=== PATIENT | female | born 1970 | race American Indian/Alaskan Native ===

== ENCOUNTER 2018-06-03 20:51 | Inpatient (IN) | payer MEDICAID ==
[2018-06-03] MEDS ORDERED: Sodium Chloride 0.9% 1,000 ML IV ONE (21:46)
[2018-06-03 22:04] LABS: SQUAMOUS EPITHIAL 12 /hpf (0-5); URINE BACTERIA RARE (<OCC); URINE BILIRUBIN NEGATIVE (NEGATIVE); URINE BLOOD NEGATIVE (NEGATIVE); URINE CLARITY Hazy (Clear); URINE COLOR Amber (YELLOW); URINE GLUCOSE (UA) NORMAL (Normal); URINE LEUKOCYTE ESTERASE NEG Leu/uL (Negative); URINE PROTEIN 2+ mg/dL (NEGATIVE)
--- NOTE | 2018-06-03 22:14 | C.PDOC ---
History Of Present Illness 48 year old female, whose PMHx includes HIV, Bronchitis, HTN, and "small [place]," presents to the ED for evaluation of fever associated with cough and body aches for the past 3 days. Patient also reports urinary frequency and states she had one episode of vomiting today. Patient also notes high viral load; patient states she is supposed to be monitored monthly, but has not followed up in three months. Patient denies chest pain and shortness of breath. HPI: Influenza Time Seen by Provider: 06/03/18 21:29 Chief Complaint: Flu-like Symptoms Past Medical History Vital Signs: Last Vital Signs Temp 102.6 F H 06/03/18 21:11 Pulse 120 H 06/03/18 21:11 Resp 18 06/03/18 21:11 BP 120/80 06/03/18 21:11 Pulse Ox 96 06/03/18 21:11 - Medical History PMH: Asthma, HIV - Social History Hx Alcohol Use: Yes Hx Substance Use: No - ECG O2 Sat by Pulse Oximetry: 96 Disposition - Disposition
--- NOTE | 2018-06-03 22:18 | C.PDOC ---
History Of Present Illness 48 year old female, whose PMHx includes HIV, Bronchitis, HTN, and "small [place]," presents to the ED for evaluation of fever associated with cough and body aches for the past 3 days. Patient also reports urinary frequency and vomiting. Patient also notes she has a high viral load; she is supposed to f/u with her PMD monthly, but has not followed up in three months. Patient denies chest pain and shortness of breath. Time Seen by Provider: 06/03/18 21:29 Chief Complaint (Nursing): Flu-like Symptoms History Per: Patient History/Exam Limitations: no limitations Onset/Duration Of Symptoms: Days (3) Current Symptoms Are (Timing): Still Present Location Of Pain: Diffuse Myalgias Associated Symptoms: Fever, Cough Additional History Per: Patient Past Medical History Reviewed: Historical Data, Nursing Documentation, Vital Signs Vital Signs: Last Vital Signs Temp 98.1 F 06/04/18 04:03 Pulse 84 06/04/18 04:03 Resp 20 06/04/18 04:03 BP 98/65 L 06/04/18 04:03 Pulse Ox 99 06/04/18 04:03 - Medical History PMH: Asthma, HIV Surgical History: No Surg Hx Family History: States: Unknown Family Hx - Social History Hx Alcohol Use: Yes Hx Substance Use: No Review Of Systems Constitutional: Positive for: Fever Cardiovascular: Negative for: Chest Pain Respiratory: Positive for: Cough. Negative for: Shortness of Breath Gastrointestinal: Positive for: Vomiting Genitourinary: Positive for: Frequency Musculoskeletal: Positive for: Other (generalized body aches ) Physical Exam - Physical Exam Appears: Non-toxic, No Acute Distress Skin: Normal Color, Warm, Dry Head: Atraumatic, Normacephalic Eye(s): bilateral: Normal Inspection, EOMI Ear(s): Bilateral: Normal Nose: Normal Oral Mucosa: Moist Tongue: Other (white plaques noted ) Throat: Normal, No Erythema, No Exudate Neck: Normal ROM, Supple Chest: Symmetrical, No Deformity, No Tenderness Cardiovascular: Rhythm Regular, Other (tachycardia ) Respiratory: Normal Breath Sounds, No Rales, No Rhonchi, No Wheezing Gastrointestinal/Abdominal: Soft, No Tenderness Extremity: Normal ROM, Capillary Refill (less than 2 seconds ) Neurological/Psych: Oriented x3, Normal Speech, Normal Cognition ED Course And Treatment - Laboratory Results Result Diagrams: 06/03/18 22:06 06/03/18 22:06 O2 Sat by Pulse Oximetry: 96 (on RA) Pulse Ox Interpretation: Normal Progress Note: Bloodwork, urinalysis, Influenza A/B swab, CXR ordered and reviewed. Tylenol PO and IV fluids given. Case discussed with Dr Cortes, agreed upon plan and admission. Case discussed with Dr Neptali Cardenas, agreed upon plan and admission. Disposition - Disposition Disposition: HOSPITALIZED Disposition Time: 11:00 Condition: STABLE - Clinical Impression Clinical Impression: Hyperpyrexia, Immunocompromised, Vomiting - PA / [employer]RETTED [employer]UMENT [employer] HAND / Resident Statement MD/DO has reviewed & agrees with the documentation as recorded. - Scribe Statement The provider has reviewed the documentation as recorded by the Scribe All medical record entries made by the Scribe were at my direction and personally dictated by me. I have reviewed the chart and agree that the record accurately reflects my personal performance of the history, physical exam, medical decision making, and the department course for this patient. I have also personally directed, reviewed, and agree with the discharge instructions and disposition.
[2018-06-03 22:21] LABS: BASO # 0.1 K/uL (0.0-0.2); BASO % 0.6 % (0.0-2.0); EOS % 0.4 % (0.0-4.0); HEMOGLOBIN 12.1 g/dL (11.0-16.0); LYMPH # 2.5 K/uL (1.0-4.3); LYMPH % 30.2 % (20.0-40.0); MEAN CORPUSCULAR HEMOGLOBIN 29.8 pg (27.0-31.0); MEAN CORPUSCULAR HGB CONC 33.9 g/dL (33.0-37.0); MEAN PLATELET VOLUME 8.6 fL (7.2-11.7); MONO # 0.6 K/uL (0.0-0.8); MONO % 7.8 % (0.0-10.0); NRBC % 0.2 % (0.0-2.0); RBC 4.06 Mil/uL (3.80-5.20); RED CELL DISTRIBUTION WIDTH 13.5 % (11.5-14.5); WHITE BLOOD COUNT 8.1 K/uL (4.8-10.8)
[2018-06-03 22:24] LABS: ALB/GLOB RATIO 0.9 (1.0-2.1); ALBUMIN 4.2 g/dL (3.5-5.0); ALT/SGPT 23 U/L (9-52); AST/SGOT 39 U/L (14-36); BLOOD UREA NITROGEN 20 mg/dL (7-17); CALCIUM 9.2 mg/dl (8.6-10.4); GFR AFRICAN-AMERICAN > 60; GFR NON-AFRICAN AMERICAN 53
[2018-06-03] MEDS ORDERED: Piperacillin/Tazobact 3.375 gm 100 ML IV STA (23:11)
[2018-06-03] MEDS ORDERED: Piperacillin/Tazobact 3.375 gm 100 ML IVPB ONE (23:15)
[2018-06-04] MEDS ORDERED: Vancomycin 1 gm/NS 200 ml 1 GM/200 ML BAG IVPB SCH (01:30)
[2018-06-04] MEDS ORDERED: guaiFENesin DM 200 mg-20 mg/10 ml UD PO ONE (04:13)
--- NOTE | 2018-06-04 07:20 | RAD ---
Date of service: 06/03/2018 HISTORY: SOB COMPARISON: No prior. TECHNIQUE: Chest PA and lateral FINDINGS: LUNGS: There is a rounded patchy density seen the left apex which could reflect an infiltrate although mass is not excluded. Follow-up chest CT is advised for added characterization. Remaining bilateral lung harley are otherwise clear. PLEURA: No significant pleural effusion identified. No pneumothorax apparent. CARDIOVASCULAR: Normal. OSSEOUS STRUCTURES: No significant abnormalities. VISUALIZED UPPER ABDOMEN: Normal. OTHER FINDINGS: None. IMPRESSION: Findings suspicious for small infiltrate or mass left apex for which follow-up chest is advised for added characterization. No additional pertinent findings bilaterally. PA review added.
[2018-06-04] MEDS ORDERED: cefTRIAXone IV 1 gm in Dextros 1 GM in Dextrose 5% In Water 50 ML IVPB SCH (10:00)
[2018-06-04] MEDS: Enoxaparin 40 mg Syringe SC SCH (10:11)
[2018-06-04] MEDS: Azithromycin 500 MG in Sodium Chloride 0.9% 250 ML IVPB SCH (10:12)
[2018-06-04] MEDS: cefTRIAXone IV 1 gm in Dextros 50 ML IVPB SCH (10:12)
[2018-06-04 11:37] LABS: BASO % 0.2 % (0.0-2.0); EOS # 0.1 K/uL (0.0-0.7); HEMOGLOBIN 10.7 g/dL (11.0-16.0); LYMPH # 1.4 K/uL (1.0-4.3); LYMPH % 24.2 % (20.0-40.0); MEAN CELL VOLUME 88.7 fL (81.0-99.0); MEAN CORPUSCULAR HEMOGLOBIN 29.5 pg (27.0-31.0); MEAN CORPUSCULAR HGB CONC 33.3 g/dL (33.0-37.0); MONO # 0.5 K/uL (0.0-0.8); MONO % 9.1 % (0.0-10.0); NEUT # 3.7 K/uL (1.8-7.0); NEUT % 65.5 % (50.0-75.0); NRBC % 0.1 % (0.0-2.0); RBC 3.64 Mil/uL (3.80-5.20); RED CELL DISTRIBUTION WIDTH 13.8 % (11.5-14.5); WHITE BLOOD COUNT 5.6 K/uL (4.8-10.8)
[2018-06-04 12:00] LABS: ALB/GLOB RATIO 0.9 (1.0-2.1); ALBUMIN 3.6 g/dL (3.5-5.0); ALT/SGPT 26 U/L (9-52); AST/SGOT 44 U/L (14-36); BLOOD UREA NITROGEN 14 mg/dL (7-17); CALCIUM 8.7 mg/dl (8.6-10.4); GFR AFRICAN-AMERICAN > 60; GFR NON-AFRICAN AMERICAN > 60
--- NOTE | 2018-06-04 12:34 | CP.PCM.HP ---
Past Patient History - Past Social History Smoking Status: Heavy Smoker > 10 Cigarettes Daily - PULMONARY Hx Asthma: Yes - HEMATOLOGICAL/ONCOLOGICAL Hx Human Immunodeficiency Virus (HIV): Yes - PSYCHIATRIC Hx Substance Use: No Meds Allergies/Adverse Reactions: Allergies Allergy/AdvReac Type Severity Reaction Status Date / Time No Known Allergies Allergy Unverified 06/03/18 21:13 Physical Exam - Constitutional Appears: Well - Head Exam Head Exam: ATRAUMATIC, NORMAL INSPECTION, NORMOCEPHALIC - Eye Exam Eye Exam: EOMI, Normal appearance, PERRL Pupil Exam: NORMAL ACCOMODATION, PERRL - ENT Exam ENT Exam: Mucous Membranes Moist, Normal Exam Results - Vital Signs Recent Vital Signs: Last Vital Signs Temp 98.7 F 06/04/18 07:00 Pulse 73 06/04/18 07:00 Resp 20 06/04/18 07:00 BP 112/66 06/04/18 07:00 Pulse Ox 98 06/04/18 07:00 - Labs Result Diagrams: 06/04/18 11:24 06/04/18 11:24 Labs: Laboratory Results - last 24 hr 06/03/18 06/03/18 06/03/18 21:55 21:55 22:06 WBC 8.1 RBC 4.06 Hgb 12.1 Hct 35.8 MCV 88.0 MCH 29.8 MCHC 33.9 RDW 13.5 Plt Count 179 MPV 8.6 Neut % (Auto) 61.0 Lymph % (Auto) 30.2 [place] % (Auto) 7.8 Eos % (Auto) 0.4 Baso % (Auto) 0.6 Neut # (Auto) 5.0 Lymph # (Auto) 2.5 [place] # (Auto) 0.6 Eos # (Auto) 0.0 Baso # (Auto) 0.1 Sodium Potassium Chloride Carbon Dioxide Anion Gap BUN Creatinine Est GFR ( Amer) Est GFR (Non-Af Amer) Random Glucose Lactic Acid Calcium Total Bilirubin AST ALT Alkaline Phosphatase Lactate Dehydrogenase Total Protein Albumin Globulin Albumin/Globulin Ratio Urine Color [place] Urine Clarity Hazy Urine pH 5.0 Ur Specific [place] 1.020 Urine Protein 2+ H Urine Glucose (UA) Normal Urine Ketones Negative Urine Blood Negative Urine Nitrate Negative Urine Bilirubin Negative Urine Urobilinogen 4.0 H Ur Leukocyte Esterase Neg Urine WBC (Auto) 4 Urine RBC (Auto) 3 Ur Squamous Epith Cells 12 H Urine Bacteria Rare Hyaline Casts 6-10 H Influenza Typ A,B (EIA) Negative for flu a/b 06/03/18 06/03/18 06/04/18 22:06 22:06 11:24 WBC RBC Hgb Hct MCV MCH MCHC RDW Plt Count MPV Neut % (Auto) Lymph % (Auto) [place] % (Auto) Eos % (Auto) Baso % (Auto) Neut # (Auto) Lymph # (Auto) [place] # (Auto) Eos # (Auto) Baso # (Auto) Sodium 136 138 Potassium 3.8 4.0 Chloride 97 L 104 Carbon Dioxide 28 26 Anion Gap 15 11 BUN 20 H 14 Creatinine 1.1 0.8 Est GFR ( Amer) > 60 > 60 Est GFR (Non-Af Amer) 53 > 60 Random Glucose 110 H 102 Lactic Acid 1.0 Calcium 9.2 8.7 Total Bilirubin 0.7 0.5 AST 39 H 44 H ALT 23 26 Alkaline Phosphatase 77 74 Lactate Dehydrogenase 489 Total Protein 8.7 H 7.7 Albumin 4.2 3.6 Globulin 4.6 H 4.1 H Albumin/Globulin Ratio 0.9 L 0.9 L Urine Color Urine Clarity Urine pH Ur Specific [place] Urine Protein Urine Glucose (UA) Urine Ketones Urine Blood Urine Nitrate Urine Bilirubin Urine Urobilinogen Ur Leukocyte Esterase Urine WBC (Auto) Urine RBC (Auto) Ur Squamous Epith Cells Urine Bacteria Hyaline Casts Influenza Typ A,B (EIA) 06/04/18 11:24 WBC 5.6 RBC 3.64 L Hgb 10.7 L Hct 32.3 L MCV 88.7 MCH 29.5 MCHC 33.3 RDW 13.8 Plt Count 151 MPV 9.0 Neut % (Auto) 65.5 Lymph % (Auto) 24.2 [place] % (Auto) 9.1 Eos % (Auto) 1.0 Baso % (Auto) 0.2 Neut # (Auto) 3.7 Lymph # (Auto) 1.4 [place] # (Auto) 0.5 Eos # (Auto) 0.1 Baso # (Auto) 0.0 Sodium Potassium Chloride Carbon Dioxide Anion Gap BUN Creatinine Est GFR ( Amer) Est GFR (Non-Af Amer) Random Glucose Lactic Acid Calcium Total Bilirubin AST ALT Alkaline Phosphatase Lactate Dehydrogenase Total Protein Albumin Globulin Albumin/Globulin Ratio Urine Color Urine Clarity Urine pH Ur Specific [place] Urine Protein Urine Glucose (UA) Urine Ketones Urine Blood Urine Nitrate Urine Bilirubin Urine Urobilinogen Ur Leukocyte Esterase Urine WBC (Auto) Urine RBC (Auto) Ur Squamous Epith Cells Urine Bacteria Hyaline Casts Influenza Typ A,B (EIA)
--- NOTE | 2018-06-04 14:43 | CP.PCM.CON ---
History of Present Illness - History of Present Illness History of Present Illness: dictated Past Patient History - Past Social History Smoking Status: Heavy Smoker > 10 Cigarettes Daily - PULMONARY Hx Asthma: Yes - HEMATOLOGICAL/ONCOLOGICAL Hx Human Immunodeficiency Virus (HIV): Yes - PSYCHIATRIC Hx Substance Use: No Meds Allergies/Adverse Reactions: Allergies Allergy/AdvReac Type Severity Reaction Status Date / Time No Known Allergies Allergy Unverified 06/03/18 21:13 - Medications Medications: Current Medications Acetaminophen (Tylenol 325mg Tab) 650 mg PO Q6 PRN PRN Reason: Pain, moderate (4-7) Last Admin: 06/04/18 13:38 Dose: 650 mg Enoxaparin Sodium (Lovenox) 40 mg SC DAILY [facility] Last Admin: 06/04/18 10:11 Dose: 40 mg Home Med (Aspirin) 81 mg PO DAILY [facility] Azithromycin 500 mg/ Sodium (Chloride) 250 mls @ 166.667 mls/hr IVPB DAILY [facility] PRN Reason: Protocol Last Admin: 06/04/18 10:12 Dose: 166.667 mls/hr Ceftriaxone Sodium (Rocephin Iv 1 Gm Duplex) 50 mls @ 50 mls/30 min IVPB DAILY [facility] PRN Reason: Protocol Last Admin: 06/04/18 10:12 Dose: 50 mls/30 min Vancomycin/Sodium Chloride (Vancomycin 1 Gm/Ns 200 Ml) 1 gm in 200 mls @ 133.333 mls/hr IVPB Q12H [facility] PRN Reason: Protocol Stop: 06/09/18 14:16 Nystatin (Nystatin Oral Susp) 5 ml PO QID [facility] Pantoprazole Sodium (Protonix Inj) 40 mg IVP DAILY [facility] Last Admin: 06/04/18 10:12 Dose: 40 mg Results - Vital Signs Recent Vital Signs: Last Vital Signs Temp 100.8 F H 06/04/18 13:38 Pulse 73 06/04/18 07:00 Resp 20 06/04/18 07:00 BP 112/66 06/04/18 07:00 Pulse Ox 98 06/04/18 07:00 - Labs Result Diagrams: 06/04/18 11:24 06/04/18 11:24 Labs: Laboratory Results - last 24 hr 06/03/18 06/03/18 06/03/18 21:55 21:55 22:06 WBC 8.1 RBC 4.06 Hgb 12.1 Hct 35.8 MCV 88.0 MCH 29.8 MCHC 33.9 RDW 13.5 Plt Count 179 MPV 8.6 Neut % (Auto) 61.0 Lymph % (Auto) 30.2 [place] % (Auto) 7.8 Eos % (Auto) 0.4 Baso % (Auto) 0.6 Neut # (Auto) 5.0 Lymph # (Auto) 2.5 [place] # (Auto) 0.6 Eos # (Auto) 0.0 Baso # (Auto) 0.1 Sodium Potassium Chloride Carbon Dioxide Anion Gap BUN Creatinine Est GFR ( Amer) Est GFR (Non-Af Amer) Random Glucose Lactic Acid Calcium Total Bilirubin AST ALT Alkaline Phosphatase Lactate Dehydrogenase Total Protein Albumin Globulin Albumin/Globulin Ratio Urine Color [place] Urine Clarity Hazy Urine pH 5.0 Ur Specific [place] 1.020 Urine Protein 2+ H Urine Glucose (UA) Normal Urine Ketones Negative Urine Blood Negative Urine Nitrate Negative Urine Bilirubin Negative Urine Urobilinogen 4.0 H Ur Leukocyte Esterase Neg Urine WBC (Auto) 4 Urine RBC (Auto) 3 Ur Squamous Epith Cells 12 H Urine Bacteria Rare Hyaline Casts 6-10 H Influenza Typ A,B (EIA) Negative for flu a/b 06/03/18 06/03/18 06/04/18 22:06 22:06 11:24 WBC RBC Hgb Hct MCV MCH MCHC RDW Plt Count MPV Neut % (Auto) Lymph % (Auto) [place] % (Auto) Eos % (Auto) Baso % (Auto) Neut # (Auto) Lymph # (Auto) [place] # (Auto) Eos # (Auto) Baso # (Auto) Sodium 136 138 Potassium 3.8 4.0 Chloride 97 L 104 Carbon Dioxide 28 26 Anion Gap 15 11 BUN 20 H 14 Creatinine 1.1 0.8 Est GFR ( Amer) > 60 > 60 Est GFR (Non-Af Amer) 53 > 60 Random Glucose 110 H 102 Lactic Acid 1.0 Calcium 9.2 8.7 Total Bilirubin 0.7 0.5 AST 39 H 44 H ALT 23 26 Alkaline Phosphatase 77 74 Lactate Dehydrogenase 489 Total Protein 8.7 H 7.7 Albumin 4.2 3.6 Globulin 4.6 H 4.1 H Albumin/Globulin Ratio 0.9 L 0.9 L Urine Color Urine Clarity Urine pH Ur Specific [place] Urine Protein Urine Glucose (UA) Urine Ketones Urine Blood Urine Nitrate Urine Bilirubin Urine Urobilinogen Ur Leukocyte Esterase Urine WBC (Auto) Urine RBC (Auto) Ur Squamous Epith Cells Urine Bacteria Hyaline Casts Influenza Typ A,B (EIA) 06/04/18 11:24 WBC 5.6 RBC 3.64 L Hgb 10.7 L Hct 32.3 L MCV 88.7 MCH 29.5 MCHC 33.3 RDW 13.8 Plt Count 151 MPV 9.0 Neut % (Auto) 65.5 Lymph % (Auto) 24.2 [place] % (Auto) 9.1 Eos % (Auto) 1.0 Baso % (Auto) 0.2 Neut # (Auto) 3.7 Lymph # (Auto) 1.4 [place] # (Auto) 0.5 Eos # (Auto) 0.1 Baso # (Auto) 0.0 Sodium Potassium Chloride Carbon Dioxide Anion Gap BUN Creatinine Est GFR ( Amer) Est GFR (Non-Af Amer) Random Glucose Lactic Acid Calcium Total Bilirubin AST ALT Alkaline Phosphatase Lactate Dehydrogenase Total Protein Albumin Globulin Albumin/Globulin Ratio Urine Color Urine Clarity Urine pH Ur Specific [place] Urine Protein Urine Glucose (UA) Urine Ketones Urine Blood Urine Nitrate Urine Bilirubin Urine Urobilinogen Ur Leukocyte Esterase Urine WBC (Auto) Urine RBC (Auto) Ur Squamous Epith Cells Urine Bacteria Hyaline Casts Influenza Typ A,B (EIA)
[2018-06-04] MEDS: Vancomycin 1 gm/NS 200 ml 1 GM/200 ML BAG IVPB SCH (15:06)
--- NOTE | 2018-06-04 15:48 | CT ---
Date of service: 06/04/2018 PROCEDURE: CT MAXILLOFACIAL BONES WITHOUT CONTRAST HISTORY: left upper maxilla dental abscess COMPARISON: None available. TECHNIQUE: Contiguous axial CT images of the maxillofacial bones were obtained. Coronal and sagittal reformats were generated. Radiation dose: Total exam DLP = 807.01 mGy-cm. This CT exam was performed using one or more of the following dose reduction techniques: Automated exposure control, adjustment of the mA and/or kV according to patient size, and/or use of iterative reconstruction technique. FINDINGS: NASAL BONES: The nasal bones are intact. ORBITS: Both globes are symmetric. No evidence for orbital cellulitis or subperiosteal abscess. PARANASAL SINUSES/ MASTOIDS: There is mild polypoid mucosal thickening in the right maxillary sinus. The remaining included paranasal sinuses are clear. The mastoid air cells are clear MAXILLA: No evidence for bone erosion or osteomyelitis. MANDIBLE/ TEMPOROMANDIBULAR JOINTS: Normal in appearance. SKULL BASE: Unremarkable. TEMPORAL BONES: Middle ears and mastoid grossly unremarkable. OTHER FINDINGS: None. IMPRESSION: No evidence of drainable fluid collection or osteomyelitis.
--- NOTE | 2018-06-04 16:12 | CT ---
Date of service: 06/04/2018 PROCEDURE: CT Chest without contrast HISTORY: chest pneumonia/mass in hiv pt,smoker COMPARISON: Plain radiographs from 06/03/2018. TECHNIQUE: Contiguous axial images were obtained through the chest without intravenous contrast enhancement. Sagittal and coronal reconstructions were performed. Radiation dose (DLP): 224.07 mGy-cm. This CT exam was performed using one or more of the following dose reduction techniques: Automated exposure control, adjustment of the mA and/or kV according to patient size, and/or use of iterative reconstruction technique. FINDINGS: LUNGS: The lungs are well inflated. There is a 2.5 x 2.5 cm nodule with irregular margins and surrounding ground-glass attenuation in the left upper lobe. There is a 2.6 x 2.3 cm similar nodule with slightly irregular margins and surrounding ground-glass attenuation in the superior segment of the right lower lobe. There is ill-defined patchy ground-glass airspace disease in the lateral segment of the right middle lobe and in the right lower lobe. MEDIASTINUM: The aorta is not dilated. The heart is normal in size. There is trace pericardial effusion. No bulky mediastinal adenopathy. PLEURA: No pleural fluid. No pneumothorax. BONES: No fracture. No destructive lesion. Within normal limits for the patient's age. UPPER ABDOMEN: Grossly unremarkable. OTHER FINDINGS: None. IMPRESSION: Two discrete nodules with irregular margins and surrounding ground-glass attenuation in the left upper lobe and superior segment of the right lower lobe and patchy airspace disease in the right middle lobe and lower lobe. With the stated clinical history, the differential considerations include nonspecific/atypical multifocal pneumonia including septic emboli.
[2018-06-04] MEDS: Nystatin 100,000 Units/ml Oral Susp 5 ml UD PO SCH ×2 (17:49→20:10)
[2018-06-05] MEDS: Vancomycin 1 gm/NS 200 ml 1 GM/200 ML BAG IVPB SCH ×2 (02:58→13:30)
[2018-06-05 08:05] LABS: BASO % 0.2 % (0.0-2.0); EOS # 0.1 K/uL (0.0-0.7); EOS % 2.1 % (0.0-4.0); HEMOGLOBIN 10.6 g/dL (11.0-16.0); LYMPH # 1.6 K/uL (1.0-4.3); LYMPH % 29.7 % (20.0-40.0); MEAN CELL VOLUME 89.2 fL (81.0-99.0); MEAN CORPUSCULAR HEMOGLOBIN 29.9 pg (27.0-31.0); MEAN CORPUSCULAR HGB CONC 33.6 g/dL (33.0-37.0); MEAN PLATELET VOLUME 9.4 fL (7.2-11.7); MONO # 0.5 K/uL (0.0-0.8); MONO % 9.1 % (0.0-10.0); NEUT # 3.3 K/uL (1.8-7.0); NEUT % 58.9 % (50.0-75.0); RBC 3.55 Mil/uL (3.80-5.20); RED CELL DISTRIBUTION WIDTH 13.6 % (11.5-14.5); WHITE BLOOD COUNT 5.5 K/uL (4.8-10.8)
[2018-06-05 08:37] LABS: ALB/GLOB RATIO 0.9 (1.0-2.1); ALBUMIN 3.6 g/dL (3.5-5.0); ALT/SGPT 25 U/L (9-52); AST/SGOT 53 U/L (14-36); BLOOD UREA NITROGEN 8 mg/dL (7-17); CALCIUM 8.9 mg/dl (8.6-10.4); GFR AFRICAN-AMERICAN > 60; GFR NON-AFRICAN AMERICAN > 60
[2018-06-05 09:07] LABS: N MENINGITIS ACY/W135 NEGATIVE (NEGATIVE); N MENINGITIS B/ECOLI K1 NEGATIVE (NEGATIVE); STREP PNEUMONIAE NEGATIVE (NEGATIVE); STREPTOCOCCUS B NEGATIVE (NEGATIVE)
[2018-06-05] MEDS: Enoxaparin 40 mg Syringe SC SCH (09:51)
[2018-06-05] MEDS: Nystatin 100,000 Units/ml Oral Susp 5 ml UD PO SCH ×4 (09:51→21:48)
[2018-06-05] MEDS: cefTRIAXone IV 1 gm in Dextros 50 ML IVPB SCH (09:51)
[2018-06-05] MEDS: Azithromycin 500 MG in Sodium Chloride 0.9% 250 ML IVPB SCH (09:51)
--- NOTE | 2018-06-05 10:32 | CON ---
Copied To: Janice Martin MD Attending MD: Janice Martin MD DATE: 06/04/2018 INFECTIOUS DISEASE CONSULT REQUESTED BY: Keren Cardenas MD HISTORY OF PRESENT ILLNESS: This patient is a 48-year-old female. She has history of HIV disease and she is not taking her medication regularly, she is on Triumeq. She also gives a history of bronchitis. She is a big time smoker. She says sometimes she will smoke two packs a day or even one pack a day. She has history of hypertension, also had a small [place] last year and she said she had a cardiac cath done in [facility] after the [place], but they did not put any stent. She is visiting her sister here who lives in [place] and she started to have cough and body aches for the past three days. She also gives me history of having tooth problems for quite some time and she is trying to visit the dentist and she says the dentist does not take out any teeth. She has pain on the left upper teeth and she thinks there is an abscess there and that is making her sick. She also reports of urinary frequency. She vomited once. She says she has a high viral load. She denies any chest pain. Denies any shortness of breath. She came in with flu-like symptoms and had a fever, is not feeling good for the last three days and is not taking her medication. She did not even bring it to [place]. She has fever and she is coughing a lot. In the ER, her blood pressure was 98/65, temperature was 98.1, however, and she was admitted. REVIEW OF SYSTEMS: She did give history of fevers. Denied any chest pain. Does have cough. Denies shortness of breath, but she says she gets very short of breath easy. She says her abdomen has always some soreness there, has vomiting. She has taken antibiotics in the past for her teeth. She does complain of frequency. Denies any dysuria. She does complain of body ache. Denies any rashes. No joint problems at this time but is feeling miserable. She came in, she had 100.8 and then she spiked to 101, pulse is 81, blood pressure 106/70, respirations are 20. Head is atraumatic, normocephalic. Pupils are reacting to light. Eye movements are unremarkable. Tongue has thrush present. She has rotten teeth on her left molar and she asked me to order a CAT scan, which I did to rule out any abscess. Actually, she denied any IV drug abuse. She said she got it sexually transmitted and from 2007 she has HIV disease. PHYSICAL EXAMINATION: VITAL SIGNS: Right now her vitals are, 101 temperature, pulse 81, blood pressure 106/70, respirations are 20. HEENT: Head is atraumatic, normocephalic. Pupils are reacting to light. Thrush present. NECK: Supple. No lymphadenopathy present. Trachea is central. LUNGS: Clear to auscultation. No crackles or rales present. HEART: S1, S2 regular. ABDOMEN: Soft, nontender. No guarding, no rigidity present. EXTREMITIES: Have no edema. LABORATORY DATA: Labs are noted. Labs show white count was 8.1 yesterday, today it is 5.6, hemoglobin 10.7, hematocrit 32.3, platelet count is 151, and neutrophils are 65, so there is no left shift, but she has fevers. Sodium is 138, potassium is 4, chloride is 104, BUN is 14, and creatinine is 0.8. Total bili is 0.5 and AST is 44. UA shows 2+ protein, squamous cells are large, bacteria is rare, so I am not sure if this has any infection. Flu swab is negative and urine culture was negative. X-ray: Since the source of fever was not clear, we did a chest x-ray first. The chest x-ray showed suspicious for small infiltrate or mass left apex for which followup chest advised for added characterization. No additional pertinent findings bilaterally, so we did a CAT scan without contrast for now. CT chest was read as two discrete nodules with irregular margins and surrounding ground-glass attenuation in the left upper lobe and superior segment of the right lower lobe and patchy airspace disease in the right middle lobe and the lower lobe. ASSESSMENT AND PLAN: With this stated clinical history, the differential considerations include nonspecific atypical multifocal pneumonia including septic emboli. I will order an echo also just to be sure that there is no vegetation there. She does not give any history of IV drug abuse, so I am not sure if this is a septic emboli there, but she is still febrile. LDH level was normal. May need a pulmonary evaluation. She has HIV and I have ordered a CD-4 count and viral load, but she follows with somebody in [place] and is visiting here. We will leave her on vancomycin, Rocephin, and Zithromax at this time. We will follow. Janice Martin MD
--- NOTE | 2018-06-05 13:02 | CP.PCM.CON ---
History of Present Illness - History of Present Illness History of Present Illness: CHART REVIEWED. PT SEEN AND EXAMINED 48 YO B FEMALE WITH A HX HIV+ 2005, NONCOMPLIANT WITH MEDS., HTN, CAD, COPD, ADM 06/03/18 WITH INCREASED MOD SOB WITH MIN EXERTION X 2 DAYS., +COUGH NO SPUTUM. , +FEVER +CHILLS., . STILL SMOKING., HAS HOME NEB, USING 1X/WK., NO HX PNA. Review of Systems - Review of Systems All systems: reviewed and no additional remarkable complaints except - Constitutional Constitutional: Chills, Fever. absent: Night Sweats - EENT Eyes: absent: Change in Vision Ears: absent: Ear Pain Nose/Mouth/Throat: absent: Nasal Congestion Additional comments: TOOTHACHE - Cardiovascular Cardiovascular: absent: Chest Pain, Chest Pain at Rest - Respiratory Respiratory: Cough, Dyspnea, Dyspnea on Exertion, Wheezing. absent: Excessive Mucous Production - Gastrointestinal Gastrointestinal: Nausea, Vomiting. absent: Diarrhea - Genitourinary Genitourinary: absent: Difficulty Urinating - Musculoskeletal Musculoskeletal: absent: Limited Range of Motion - Integumentary Integumentary: absent: Rash - Neurological Neurological: absent: Confusion, Focal Weakness - Psychiatric Psychiatric: absent: Anxiety - Endocrine Endocrine: absent: Change in Body Appearance - Hematologic/Lymphatic Hematologic: absent: Easy Bruising Past Patient History - Past Medical History & Family History Past Medical History?: Yes Past Family History: Reviewed and not pertinent Pertinent Family History: HTN - Past Social History Smoking Status: Heavy Smoker > 10 Cigarettes Daily Chewing Tobacco Use: No Cigar Use: No Alcohol: Occasional Drugs: Denies - CARDIAC Hx Cardiac Disorders: Yes Hx Heart Attack: Yes Hx Hypertension: Yes - PULMONARY Hx Respiratory Disorders: Yes Hx Asthma: Yes Hx Bronchitis: Yes Hx Chronic Obstructive Pulmonary Disease (COPD): Yes Hx Pneumonia: No - NEUROLOGICAL Hx Neurological Disorder: No - HEENT Hx HEENT Problems: No - RENAL Hx Chronic Kidney Disease: No - ENDOCRINE/METABOLIC Hx Endocrine Disorders: No - HEMATOLOGICAL/ONCOLOGICAL Hx Blood Disorders: Yes Hx Human Immunodeficiency Virus (HIV): Yes - INTEGUMENTARY Hx Dermatological Problems: No - MUSCULOSKELETAL/RHEUMATOLOGICAL Hx Musculoskeletal Disorders: No Hx Falls: No - GASTROINTESTINAL Hx Gastrointestinal Disorders: Yes Hx Gastritis: Yes - GENITOURINARY/GYNECOLOGICAL Hx Genitourinary Disorders: No - PSYCHIATRIC Hx Substance Use: No - SURGICAL HISTORY Hx Surgeries: No - ANESTHESIA Hx Anesthesia: No Hx Anesthesia Reactions: No Hx Malignant Hyperthermia: No Has any member of the family had a problem w/ anesthesia?: No Meds Allergies/Adverse Reactions: Allergies Allergy/AdvReac Type Severity Reaction Status Date / Time No Known Allergies Allergy Unverified 06/03/18 21:13 - Medications Medications: Current Medications Acetaminophen (Tylenol 325mg Tab) 650 mg PO Q6 PRN PRN Reason: Pain, moderate (4-7) Last Admin: 06/05/18 09:58 Dose: 650 mg Aspirin (Ecotrin) 81 mg PO DAILY [facility] Enoxaparin Sodium (Lovenox) 40 mg SC DAILY [facility] Last Admin: 06/05/18 09:51 Dose: 40 mg Azithromycin 500 mg/ Sodium (Chloride) 250 mls @ 166.667 mls/hr IVPB DAILY [facility] PRN Reason: Protocol Last Admin: 06/05/18 09:51 Dose: 166.667 mls/hr Ceftriaxone Sodium (Rocephin Iv 1 Gm Duplex) 50 mls @ 50 mls/30 min IVPB DAILY [facility] PRN Reason: Protocol Last Admin: 06/05/18 09:51 Dose: 50 mls/30 min Vancomycin/Sodium Chloride (Vancomycin 1 Gm/Ns 200 Ml) 1 gm in 200 mls @ 133.333 mls/hr IVPB Q12H [facility] PRN Reason: Protocol Stop: 06/09/18 14:16 Last Admin: 06/05/18 02:58 Dose: 133.333 mls/hr Nystatin (Nystatin Oral Susp) 5 ml PO QID [facility] Last Admin: 06/05/18 09:51 Dose: 5 ml Pantoprazole Sodium (Protonix Inj) 40 mg IVP DAILY [facility] Last Admin: 06/05/18 09:51 Dose: 40 mg Physical Exam - Constitutional Appears: No Acute Distress - Head Exam Head Exam: ATRAUMATIC, NORMOCEPHALIC - Eye Exam Eye Exam: EOMI, Normal appearance - ENT Exam ENT Exam: Mucous Membranes Moist - Neck Exam Neck exam: Positive for: Normal Inspection - Respiratory Exam Respiratory Exam: Decreased Breath Sounds. absent: Accessory Muscle Use, Wheezes, Respiratory Distress - Cardiovascular Exam Cardiovascular Exam: RRR, +S1, +S2 - GI/Abdominal Exam GI & Abdominal Exam: Soft. absent: Tenderness - Rectal Exam Rectal Exam: Deferred - Extremities Exam Extremities exam: Negative for: calf tenderness, pedal edema - Back Exam Back exam: absent: CVA tenderness (L), CVA tenderness (R) - Neurological Exam Neurological exam: Alert, CN II-XII Intact, Oriented x3 - Psychiatric Exam Psychiatric exam: Normal Mood Results - Vital Signs Recent Vital Signs: Last Vital Signs Temp 99.3 F 06/05/18 08:01 Pulse 76 06/05/18 08:01 Resp 20 06/05/18 08:01 BP 124/75 06/05/18 08:01 Pulse Ox 97 06/05/18 12:43 - Labs Result Diagrams: 06/05/18 07:48 06/05/18 07:48 Labs: Laboratory Results - last 24 hr 06/05/18 06/05/18 06/05/18 07:48 07:48 08:00 WBC 5.5 RBC 3.55 L Hgb 10.6 L Hct 31.7 L MCV 89.2 MCH 29.9 MCHC 33.6 RDW 13.6 Plt Count 157 MPV 9.4 Neut % (Auto) 58.9 Lymph % (Auto) 29.7 Cooper % (Auto) 9.1 Eos % (Auto) 2.1 Baso % (Auto) 0.2 Neut # (Auto) 3.3 Lymph # (Auto) 1.6 Cooper # (Auto) 0.5 Eos # (Auto) 0.1 Baso # (Auto) 0.0 Sodium 139 Potassium 4.1 Chloride 104 Carbon Dioxide 25 Anion Gap 14 BUN 8 Creatinine 0.6 L Est GFR ( Amer) > 60 Est GFR (Non-Af Amer) > 60 Random Glucose 96 Calcium 8.9 Total Bilirubin 0.3 AST 53 H D ALT 25 Alkaline Phosphatase 81 Total Protein 7.7 Albumin 3.6 Globulin 4.1 H Albumin/Globulin Ratio 0.9 L H.influenzae Type B Ag Negative N.meningitidis ACY/W135 Negative N.meningi B/E.coli K1 Ag Negative Group B Strep Antigen Negative S. pneumoniae Antigen Negative Assessment & Plan (1) HIV (human immunodeficiency virus infection) Status: Acute (2) Pneumonia Status: Acute (3) CAD (coronary artery disease) Status: Acute (4) HTN (hypertension) Status: Acute (5) Lung nodules Status: Acute (6) Anemia Status: Acute (7) COPD exacerbation Status: Acute - Assessment and Plan (Free Text) Assessment: 48 YO FEMALE WITH A HX MULT MED PROBS, ADM WITH DYSPNEA AND FEVERS, +BILAT PNA . CT CHEST REVIEWD., ?SEPTIC EMBOLI., CXR REVIEWED. FOR ECHO. CONT EMPIRIC IV AB , PENDING CULT., MONITOR O2 SAT., NEB BD., F/U VIRAL LOAD,. ID W/U IN PROGRESS. SMOKING CESSATION., COMPLIANCE WITH MEDS STRESSED. GI/DVT PROPHYLAXIS. PFT'S. PROG GUARDED., DISCUSSED WITH STAFF AND FAMILY AT BEDSIDE.
[2018-06-05] MEDS: Albuterol-Ipratrop 3 mg / 0.5 (3 ml) UD INH SCH ×2 (13:53→19:59)
--- NOTE | 2018-06-05 16:07 | CP.PCM.PN ---
Subjective - Date & Time of Evaluation Date of Evaluation: 06/05/18 Time of Evaluation: 03:15 - Subjective Subjective: dictated Objective - Vital Signs/Intake and Output Vital Signs (last 24 hours): Temp Pulse Resp BP Pulse Ox 98.5 F 83 20 117/81 100 06/05/18 15:46 06/05/18 15:46 06/05/18 15:46 06/05/18 15:46 06/05/18 15:46 Intake and Output: 06/05/18 06/05/18 06:59 18:59 Intake Total 1300 Balance 1300 - Medications Medications: Current Medications Acetaminophen (Tylenol 325mg Tab) 650 mg PO Q6 PRN PRN Reason: Pain, moderate (4-7) Last Admin: 06/05/18 09:58 Dose: 650 mg Albuterol/Ipratropium (Duoneb 3 Mg/0.5 Mg (3 Ml) Ud) 3 ml INH RQ6 [facility] Aspirin (Ecotrin) 81 mg PO DAILY [facility] Last Admin: 06/05/18 14:15 Dose: 81 mg Enoxaparin Sodium (Lovenox) 40 mg SC DAILY [facility] Last Admin: 06/05/18 09:51 Dose: 40 mg Azithromycin 500 mg/ Sodium (Chloride) 250 mls @ 166.667 mls/hr IVPB DAILY [facility] PRN Reason: Protocol Last Admin: 06/05/18 09:51 Dose: 166.667 mls/hr Ceftriaxone Sodium (Rocephin Iv 1 Gm Duplex) 50 mls @ 50 mls/30 min IVPB DAILY [facility] PRN Reason: Protocol Last Admin: 06/05/18 09:51 Dose: 50 mls/30 min Vancomycin/Sodium Chloride (Vancomycin 1 Gm/Ns 200 Ml) 1 gm in 200 mls @ 133.333 mls/hr IVPB Q12H [facility] PRN Reason: Protocol Stop: 06/09/18 14:16 Last Admin: 06/05/18 13:30 Dose: 133.333 mls/hr Nystatin (Nystatin Oral Susp) 5 ml PO QID [facility] Last Admin: 06/05/18 13:30 Dose: 5 ml Pantoprazole Sodium (Protonix Inj) 40 mg IVP DAILY [facility] Last Admin: 06/05/18 09:51 Dose: 40 mg - Labs Labs: 06/05/18 07:48 06/05/18 07:48
--- NOTE | 2018-06-05 17:23 | CP.PCM.PN ---
Subjective - Date & Time of Evaluation Date of Evaluation: 06/05/18 Time of Evaluation: 08:40 - Subjective Subjective: clinically same Objective - Vital Signs/Intake and Output Vital Signs (last 24 hours): Temp Pulse Resp BP Pulse Ox 98.5 F 83 20 117/81 100 06/05/18 15:46 06/05/18 15:46 06/05/18 15:46 06/05/18 15:46 06/05/18 15:46 Intake and Output: 06/05/18 06/05/18 06:59 18:59 Intake Total 1300 Balance 1300 - Medications Medications: Current Medications Acetaminophen (Tylenol 325mg Tab) 650 mg PO Q6 PRN PRN Reason: Pain, moderate (4-7) Last Admin: 06/05/18 09:58 Dose: 650 mg Albuterol/Ipratropium (Duoneb 3 Mg/0.5 Mg (3 Ml) Ud) 3 ml INH RQ6 [facility] Aspirin (Ecotrin) 81 mg PO DAILY [facility] Last Admin: 06/05/18 14:15 Dose: 81 mg Enoxaparin Sodium (Lovenox) 40 mg SC DAILY [facility] Last Admin: 06/05/18 09:51 Dose: 40 mg Guaifenesin (Robitussin) 100 mg PO Q6H PRN PRN Reason: Cough Azithromycin 500 mg/ Sodium (Chloride) 250 mls @ 166.667 mls/hr IVPB DAILY [facility] PRN Reason: Protocol Last Admin: 06/05/18 09:51 Dose: 166.667 mls/hr Ceftriaxone Sodium (Rocephin Iv 1 Gm Duplex) 50 mls @ 50 mls/30 min IVPB DAILY [facility] PRN Reason: Protocol Last Admin: 06/05/18 09:51 Dose: 50 mls/30 min Vancomycin/Sodium Chloride (Vancomycin 1 Gm/Ns 200 Ml) 1 gm in 200 mls @ 133.333 mls/hr IVPB Q12H [facility] PRN Reason: Protocol Stop: 06/09/18 14:16 Last Admin: 06/05/18 13:30 Dose: 133.333 mls/hr Nystatin (Nystatin Oral Susp) 5 ml PO QID [facility] Last Admin: 06/05/18 17:07 Dose: 5 ml Pantoprazole Sodium (Protonix Inj) 40 mg IVP DAILY [facility] Last Admin: 06/05/18 09:51 Dose: 40 mg - Labs Labs: 06/05/18 07:48 06/05/18 07:48 - Constitutional Appears: Well - Head Exam Head Exam: ATRAUMATIC, NORMAL INSPECTION, NORMOCEPHALIC - Eye Exam Eye Exam: EOMI, Normal appearance, PERRL Pupil Exam: NORMAL ACCOMODATION, PERRL - ENT Exam ENT Exam: Mucous Membranes Moist, Normal Exam - Neck Exam Neck Exam: Full ROM, Normal Inspection. absent: Lymphadenopathy - Respiratory Exam Respiratory Exam: Decreased Breath Sounds - Cardiovascular Exam Cardiovascular Exam: REGULAR RHYTHM, +S1, +S2 - GI/Abdominal Exam GI & Abdominal Exam: Soft, Diminished Bowel Sounds - Rectal Exam Rectal Exam: Deferred
[2018-06-05] MEDS: guaiFENesin 100 mg/5 ml Syrup UD PO PRN (21:48)
--- NOTE | 2018-06-06 01:23 | PN ---
Copied To: Janice Martin MD Attending MD: Janice Martin MD DATE: 06/05/2018 SUBJECTIVE: The patient was feeling little better today. She was seen by Pulmonary as she had abnormal CAT scan and Pulmonary thinks she has pneumonia. PHYSICAL EXAMINATION: VITAL SIGNS: T-max is 99.3, now 98.5, pulse is 83, blood pressure 117/81, respirations are 20. She was coughing and she is on respiratory treatments now. HEENT: Head is atraumatic. NECK: Supple. LUNGS: Clear. The patient had rhonchi present. HEART: S1, S2 are regular. ABDOMEN: Soft, nontender. EXTREMITIES: Have no edema, clubbing, or cyanosis. I told her she needs to cut down on smoking as smoking has a lot of issues and along with daily HIV medicine, she needs to be regular on her medicine and to be taking it. Otherwise, she will have a wild virus, which will be resistant to most of the medicines. Her white count was 5.5, hemoglobin 10.6. BUN is 8, creatinine 0.6. Procalcitonin was 0.07. Blood culture x2 are negative. Urine culture is negative. The patient had a maxillofacial CAT scan, which did not show the dental caries that she has and a dental abscess which is still present. I told her to follow with the dentist and she has on the CAT scan 2 discrete nodules with irregular margins and surrounding glass attenuation in the left upper lobe and superior segment of the right lower lobe and patchy airspace disease in right middle lobe and lower lobe. She has a multifocal pneumonia at this time, is being treated with IV antibiotics. She is on three antibiotics, vancomycin, Rocephin, and Zithromax and we are waiting for the cardiovascular echocardiogram as there was some mention of a septic emboli, so I wanted to check her echo to look for any vegetation. We will follow. The patient has pneumonia, HIV disease. She is a smoker and history of asthma. Janice Martin MD
[2018-06-06] MEDS: Vancomycin 1 gm/NS 200 ml 1 GM/200 ML BAG IVPB SCH ×2 (01:24→13:50)
[2018-06-06] MEDS: Albuterol-Ipratrop 3 mg / 0.5 (3 ml) UD INH SCH ×4 (03:02→19:34)
[2018-06-06 07:49] LABS: BASO % 0.2 % (0.0-2.0); EOS # 0.1 K/uL (0.0-0.7); EOS % 2.5 % (0.0-4.0); HEMOGLOBIN 10.2 g/dL (11.0-16.0); LYMPH # 1.3 K/uL (1.0-4.3); LYMPH % 34.5 % (20.0-40.0); MEAN CELL VOLUME 87.4 fL (81.0-99.0); MEAN CORPUSCULAR HEMOGLOBIN 30.1 pg (27.0-31.0); MEAN CORPUSCULAR HGB CONC 34.5 g/dL (33.0-37.0); MEAN PLATELET VOLUME 9.3 fL (7.2-11.7); MONO # 0.4 K/uL (0.0-0.8); MONO % 10.6 % (0.0-10.0); NEUT % 52.2 % (50.0-75.0); RBC 3.4 Mil/uL (3.80-5.20); RED CELL DISTRIBUTION WIDTH 13.4 % (11.5-14.5); WHITE BLOOD COUNT 3.8 K/uL (4.8-10.8)
[2018-06-06 07:55] LABS: ALB/GLOB RATIO 0.9 (1.0-2.1); ALBUMIN 3.7 g/dL (3.5-5.0); ALT/SGPT 26 U/L (9-52); AST/SGOT 40 U/L (14-36); BLOOD UREA NITROGEN 8 mg/dL (7-17); CALCIUM 9.1 mg/dl (8.6-10.4); GFR AFRICAN-AMERICAN > 60; GFR NON-AFRICAN AMERICAN > 60
[2018-06-06 08:36] LABS: % CD4 (T HELPER CELL) 7 Percent (30-61); % CD8 (SUPPRESSOR T CELL) 87 Percent (12-42); ABSOLUTE CD3 CELLS 884 Cells/mcL (840-3060); ABSOLUTE CD4 CELLS 64 Cells/mcL (490-1740); ABSOLUTE CD8 CELLS 815 Cells/mcL (180-1170); ABSOLUTE LYMPHOCYTES 933 Cells/mcL (850-3900); HELPER/SUPPRESSOR RATIO 0.08 Ratio (0.86-5.00)
--- NOTE | 2018-06-06 09:29 | CP.PCM.PN ---
Subjective - Date & Time of Evaluation Date of Evaluation: 06/06/18 Time of Evaluation: 07:00 - Subjective Subjective: PGY2- Progress Note for Dr. Cardenas Patient seen and examined at bedside. Patient says she still has a dry cough but is overall feeling better. Patient continues to have fevers and chills. Patient admits to constipation. Patient denies any chest pain, nausea, vomiting , or abdominal pain. Objective - Vital Signs/Intake and Output Vital Signs (last 24 hours): Temp Pulse Resp BP Pulse Ox 98.2 F 66 20 114/73 97 06/06/18 08:00 06/06/18 08:00 06/06/18 08:00 06/06/18 08:00 06/06/18 08:00 Intake and Output: 06/06/18 06/06/18 06:59 18:59 Intake Total 800 Balance 800 - Medications Medications: Current Medications Acetaminophen (Tylenol 325mg Tab) 650 mg PO Q6 PRN PRN Reason: Pain, moderate (4-7) Last Admin: 06/05/18 23:41 Dose: 650 mg Albuterol/Ipratropium (Duoneb 3 Mg/0.5 Mg (3 Ml) Ud) 3 ml INH RQ6 [facility] Last Admin: 06/06/18 08:53 Dose: 3 ml Aspirin (Ecotrin) 81 mg PO DAILY [facility] Last Admin: 06/05/18 14:15 Dose: 81 mg Enoxaparin Sodium (Lovenox) 40 mg SC DAILY [facility] Last Admin: 06/05/18 09:51 Dose: 40 mg Guaifenesin (Robitussin) 100 mg PO Q6H PRN PRN Reason: Cough Last Admin: 06/05/18 21:48 Dose: 100 mg Azithromycin 500 mg/ Sodium (Chloride) 250 mls @ 166.667 mls/hr IVPB DAILY [facility] PRN Reason: Protocol Last Admin: 06/05/18 09:51 Dose: 166.667 mls/hr Ceftriaxone Sodium (Rocephin Iv 1 Gm Duplex) 50 mls @ 50 mls/30 min IVPB DAILY [facility] PRN Reason: Protocol Last Admin: 06/05/18 09:51 Dose: 50 mls/30 min Vancomycin/Sodium Chloride (Vancomycin 1 Gm/Ns 200 Ml) 1 gm in 200 mls @ 133.333 mls/hr IVPB Q12H [facility] PRN Reason: Protocol Stop: 06/09/18 14:16 Last Admin: 06/06/18 01:24 Dose: 133.333 mls/hr Nystatin (Nystatin Oral Susp) 5 ml PO QID [facility] Last Admin: 06/05/18 21:48 Dose: 5 ml Pantoprazole Sodium (Protonix Inj) 40 mg IVP DAILY [facility] Last Admin: 06/05/18 09:51 Dose: 40 mg - Labs Labs: 06/06/18 07:33 06/06/18 07:33 - Constitutional Appears: Non-toxic, No Acute Distress - Head Exam Head Exam: ATRAUMATIC, NORMAL INSPECTION, NORMOCEPHALIC - Eye Exam Eye Exam: EOMI, Normal appearance - ENT Exam ENT Exam: Mucous Membranes Moist - Respiratory Exam Respiratory Exam: Clear to Ausculation Bilateral, NORMAL BREATHING PATTERN - Cardiovascular Exam Cardiovascular Exam: REGULAR RHYTHM, RRR, +S1, +S2 - GI/Abdominal Exam GI & Abdominal Exam: Soft, Normal Bowel Sounds. absent: Tenderness - Extremities Exam Extremities Exam: Full ROM, Normal Inspection. absent: Pedal Edema, Tenderness - Neurological Exam Neurological Exam: Alert, Awake, Oriented x3 - Psychiatric Exam Psychiatric exam: Normal Affect, Normal Mood - Skin Skin Exam: Intact, Normal Color, Warm Assessment and Plan - Assessment and Plan (Free Text) Assessment: Pneumonia cxray: suspicious for small infiltrate or mass left apex for which follow up chest is advised Chest CT: two discrete nodules with irregular margins and surrounding ground glass attenuation in the left upper lobe and superior segment of the right lower lobe and patchy airspace disease in the right middle lobe and lower lobe. With the stated clinical history, the differential considerations include nonspecific/ atypical multifocal pneumonia including septic emboli ID, Dr. Martin consulted, help appreciated f/u echo Meds: Tylenol 650mg po q6h prn Duonebs q6h [facility] Robitussin 100mg po q6h prn Azithromycin 500mg ivpb daily Rocephin 1 gm ivpb daily [facility] 1 gm q12h HIV CD4: 64 HIV: 156,000 Bactrim DS po daily for prophylaxis will also need to take Zithromax 1200mg weekly as an outpatient once discharged CAD ASA 81mg po daily Hx Dental Abscess Maxillofacial CT: no evidence of drainable fluid collection or osteomyelitis Nystatin oral susp qid COPD Duonebs q6h [facility] Prophylactic Measures SCDs
[2018-06-06] MEDS: Enoxaparin 40 mg Syringe SC SCH (10:06)
[2018-06-06] MEDS: Nystatin 100,000 Units/ml Oral Susp 5 ml UD PO SCH ×4 (10:06→21:47)
[2018-06-06] MEDS: cefTRIAXone IV 1 gm in Dextros 50 ML IVPB SCH (10:15)
[2018-06-06] MEDS: Azithromycin 500 MG in Sodium Chloride 0.9% 250 ML IVPB SCH (10:15)
[2018-06-06] MEDS ORDERED: POLYETHYLENE GLYCOL 3350 17 GM/Dose PACKET PO ONE (11:45)
--- NOTE | 2018-06-06 12:36 | CP.PCM.PN ---
Subjective - Date & Time of Evaluation Date of Evaluation: 06/06/18 Time of Evaluation: 12:33 - Subjective Subjective: PT ALERT, FEELS BETTER., +COUGH, LOOSE NOW., LESS SOB. ROS ; OTHERWISE NEG Objective - Vital Signs/Intake and Output Vital Signs (last 24 hours): Temp Pulse Resp BP Pulse Ox 98.2 F 66 20 114/73 97 06/06/18 08:00 06/06/18 08:00 06/06/18 08:00 06/06/18 08:00 06/06/18 08:00 Intake and Output: 06/06/18 06/06/18 06:59 18:59 Intake Total 800 Balance 800 - Medications Medications: Current Medications Acetaminophen (Tylenol 325mg Tab) 650 mg PO Q6 PRN PRN Reason: Pain, moderate (4-7) Last Admin: 06/05/18 23:41 Dose: 650 mg Albuterol/Ipratropium (Duoneb 3 Mg/0.5 Mg (3 Ml) Ud) 3 ml INH RQ6 [facility] Last Admin: 06/06/18 08:53 Dose: 3 ml Aspirin (Ecotrin) 81 mg PO DAILY [facility] Last Admin: 06/06/18 10:06 Dose: 81 mg Enoxaparin Sodium (Lovenox) 40 mg SC DAILY [facility] Last Admin: 06/06/18 10:06 Dose: 40 mg Guaifenesin (Robitussin) 100 mg PO Q6H PRN PRN Reason: Cough Last Admin: 06/05/18 21:48 Dose: 100 mg Azithromycin 500 mg/ Sodium (Chloride) 250 mls @ 166.667 mls/hr IVPB DAILY [facility] PRN Reason: Protocol Last Admin: 06/06/18 10:15 Dose: 166.667 mls/hr Ceftriaxone Sodium (Rocephin Iv 1 Gm Duplex) 50 mls @ 50 mls/30 min IVPB DAILY [facility] PRN Reason: Protocol Last Admin: 06/06/18 10:15 Dose: 50 mls/30 min Vancomycin/Sodium Chloride (Vancomycin 1 Gm/Ns 200 Ml) 1 gm in 200 mls @ 133.333 mls/hr IVPB Q12H [facility] PRN Reason: Protocol Stop: 06/09/18 14:16 Last Admin: 06/06/18 01:24 Dose: 133.333 mls/hr Nystatin (Nystatin Oral Susp) 5 ml PO QID [facility] Last Admin: 06/06/18 10:06 Dose: 5 ml Pantoprazole Sodium (Protonix Inj) 40 mg IVP DAILY [facility] Last Admin: 06/06/18 10:05 Dose: 40 mg Trimethoprim/Sulfamethoxazole (Bactrim Ds Tab) 1 tab PO DAILY [facility] PRN Reason: Protocol - Labs Labs: 06/06/18 07:33 06/06/18 07:33 - Constitutional Appears: Non-toxic, No Acute Distress, Chronically Ill - Head Exam Head Exam: ATRAUMATIC, NORMOCEPHALIC - Eye Exam Eye Exam: EOMI, Normal appearance - ENT Exam ENT Exam: Mucous Membranes Moist - Neck Exam Neck Exam: Normal Inspection - Respiratory Exam Respiratory Exam: Decreased Breath Sounds. absent: Accessory Muscle Use, Wheezes, Respiratory Distress - Cardiovascular Exam Cardiovascular Exam: RRR, +S1, +S2 - GI/Abdominal Exam GI & Abdominal Exam: Soft. absent: Tenderness - Rectal Exam Rectal Exam: Deferred - Extremities Exam Extremities Exam: absent: Calf Tenderness, Pedal Edema - Back Exam Back Exam: absent: CVA tenderness (L), CVA tenderness (R) - Neurological Exam Neurological Exam: Alert, Awake, CN II-XII Intact, Oriented x3 - Psychiatric Exam Psychiatric exam: Normal Mood - Skin Skin Exam: absent: Rash Assessment and Plan (1) HIV (human immunodeficiency virus infection) Status: Acute (2) Pneumonia Status: Acute (3) CAD (coronary artery disease) Status: Acute (4) HTN (hypertension) Status: Acute (5) Lung nodules Status: Acute (6) Anemia Status: Acute (7) COPD exacerbation Status: Acute - Assessment and Plan (Free Text) Assessment: RESP STATUS IMPROVING., CONT NEB BD., MONITOR O2 SAT. CONT IV AB., ECHO PENDING. , ID F/U NOTED. CD4 COUNT NOTED .PROG GUARDED DISCUSSED WITH STAFF.
[2018-06-06] MEDS: Tmp-Smz 800 mg-160 mg DS Tab PO SCH (16:52)
[2018-06-06 17:05] LABS: ABG ALLEN TEST POS; ARTERIAL BLOOD GAS HCO3 23.9 mmol/L (21-28); ARTERIAL BLOOD GAS HEMOGLOBIN 10.8 g/dL (11.7-17.4); ARTERIAL BLOOD GAS O2 SAT 97.9 % (95-98); ARTERIAL BLOOD GAS PCO2 34 mm/Hg (35-45); ARTERIAL BLOOD GAS PH 7.43 (7.35-7.45); ARTERIAL BLOOD GAS PO2 86 mm/Hg (80-100); ARTERIAL BLOOD GAS TCO2 23.6 mmol/L (22-28)
--- NOTE | 2018-06-06 19:35 | CP.PCM.PN ---
Subjective - Date & Time of Evaluation Date of Evaluation: 06/06/18 Time of Evaluation: 08:15 - Subjective Subjective: clinically same Objective - Vital Signs/Intake and Output Vital Signs (last 24 hours): Temp Pulse Resp BP Pulse Ox 98.7 F 76 20 126/81 97 06/06/18 16:10 06/06/18 16:10 06/06/18 16:10 06/06/18 16:10 06/06/18 16:10 Intake and Output: 06/06/18 06/07/18 18:59 06:59 Intake Total 1300 Balance 1300 - Medications Medications: Current Medications Acetaminophen (Tylenol 325mg Tab) 650 mg PO Q6 PRN PRN Reason: Pain, moderate (4-7) Last Admin: 06/05/18 23:41 Dose: 650 mg Albuterol/Ipratropium (Duoneb 3 Mg/0.5 Mg (3 Ml) Ud) 3 ml INH RQ6 [facility] Last Admin: 06/06/18 13:34 Dose: 3 ml Aspirin (Ecotrin) 81 mg PO DAILY [facility] Last Admin: 06/06/18 10:06 Dose: 81 mg Enoxaparin Sodium (Lovenox) 40 mg SC DAILY [facility] Last Admin: 06/06/18 10:06 Dose: 40 mg Guaifenesin (Robitussin) 100 mg PO Q6H PRN PRN Reason: Cough Last Admin: 06/05/18 21:48 Dose: 100 mg Azithromycin 500 mg/ Sodium (Chloride) 250 mls @ 166.667 mls/hr IVPB DAILY [facility] PRN Reason: Protocol Last Admin: 06/06/18 10:15 Dose: 166.667 mls/hr Ceftriaxone Sodium (Rocephin Iv 1 Gm Duplex) 50 mls @ 50 mls/30 min IVPB DAILY [facility] PRN Reason: Protocol Last Admin: 06/06/18 10:15 Dose: 50 mls/30 min Vancomycin/Sodium Chloride (Vancomycin 1 Gm/Ns 200 Ml) 1 gm in 200 mls @ 133.333 mls/hr IVPB Q12H [facility] PRN Reason: Protocol Stop: 06/09/18 14:16 Last Admin: 06/06/18 13:50 Dose: 133.333 mls/hr Nystatin (Nystatin Oral Susp) 5 ml PO QID [facility] Last Admin: 06/06/18 17:27 Dose: 5 ml Pantoprazole Sodium (Protonix Inj) 40 mg IVP DAILY [facility] Last Admin: 06/06/18 10:05 Dose: 40 mg Trimethoprim/Sulfamethoxazole (Bactrim Ds Tab) 1 tab PO DAILY [facility] PRN Reason: Protocol Last Admin: 06/06/18 16:52 Dose: 1 tab - Labs Labs: 06/06/18 07:33 06/06/18 07:33 - Constitutional Appears: Well - Head Exam Head Exam: ATRAUMATIC, NORMAL INSPECTION, NORMOCEPHALIC - Eye Exam Eye Exam: EOMI, Normal appearance, PERRL Pupil Exam: NORMAL ACCOMODATION, PERRL - ENT Exam ENT Exam: Mucous Membranes Moist, Normal Exam - Neck Exam Neck Exam: Full ROM, Normal Inspection. absent: Lymphadenopathy - Respiratory Exam Respiratory Exam: Decreased Breath Sounds - Cardiovascular Exam Cardiovascular Exam: REGULAR RHYTHM, +S1, +S2 - GI/Abdominal Exam GI & Abdominal Exam: Soft, Diminished Bowel Sounds - Rectal Exam Rectal Exam: Deferred
[2018-06-06] MEDS: guaiFENesin 100 mg/5 ml Syrup UD PO PRN (21:47)
--- NOTE | 2018-06-06 22:14 | CP.PCM.PN ---
Subjective - Date & Time of Evaluation Date of Evaluation: 06/06/18 Time of Evaluation: 15:20 - Subjective Subjective: dictated Objective - Vital Signs/Intake and Output Vital Signs (last 24 hours): Temp Pulse Resp BP Pulse Ox 98.7 F 76 20 126/81 97 06/06/18 16:10 06/06/18 16:10 06/06/18 16:10 06/06/18 16:10 06/06/18 16:10 Intake and Output: 06/06/18 06/07/18 18:59 06:59 Intake Total 1300 Balance 1300 - Medications Medications: Current Medications Acetaminophen (Tylenol 325mg Tab) 650 mg PO Q6 PRN PRN Reason: Pain, moderate (4-7) Last Admin: 06/05/18 23:41 Dose: 650 mg Albuterol/Ipratropium (Duoneb 3 Mg/0.5 Mg (3 Ml) Ud) 3 ml INH RQ6 [facility] Last Admin: 06/06/18 19:34 Dose: 3 ml Aspirin (Ecotrin) 81 mg PO DAILY [facility] Last Admin: 06/06/18 10:06 Dose: 81 mg Enoxaparin Sodium (Lovenox) 40 mg SC DAILY [facility] Last Admin: 06/06/18 10:06 Dose: 40 mg Guaifenesin (Robitussin) 100 mg PO Q6H PRN PRN Reason: Cough Last Admin: 06/06/18 21:47 Dose: 100 mg Azithromycin 500 mg/ Sodium (Chloride) 250 mls @ 166.667 mls/hr IVPB DAILY [facility] PRN Reason: Protocol Last Admin: 06/06/18 10:15 Dose: 166.667 mls/hr Ceftriaxone Sodium (Rocephin Iv 1 Gm Duplex) 50 mls @ 50 mls/30 min IVPB DAILY [facility] PRN Reason: Protocol Last Admin: 06/06/18 10:15 Dose: 50 mls/30 min Vancomycin/Sodium Chloride (Vancomycin 1 Gm/Ns 200 Ml) 1 gm in 200 mls @ 133.333 mls/hr IVPB Q12H [facility] PRN Reason: Protocol Stop: 06/09/18 14:16 Last Admin: 06/06/18 13:50 Dose: 133.333 mls/hr Nystatin (Nystatin Oral Susp) 5 ml PO QID [facility] Last Admin: 06/06/18 21:47 Dose: 5 ml Pantoprazole Sodium (Protonix Inj) 40 mg IVP DAILY [facility] Last Admin: 06/06/18 10:05 Dose: 40 mg Trimethoprim/Sulfamethoxazole (Bactrim Ds Tab) 1 tab PO DAILY [facility] PRN Reason: Protocol Last Admin: 06/06/18 16:52 Dose: 1 tab - Labs Labs: 06/06/18 07:33 06/06/18 07:33
[2018-06-07] MEDS: Albuterol-Ipratrop 3 mg / 0.5 (3 ml) UD INH SCH ×4 (01:31→19:34)
[2018-06-07] MEDS: Vancomycin 1 gm/NS 200 ml 1 GM/200 ML BAG IVPB SCH ×2 (02:11→13:34)
[2018-06-07 06:32] LABS: BASO % 0.2 % (0.0-2.0); EOS # 0.2 K/uL (0.0-0.7); EOS % 4.4 % (0.0-4.0); HEMOGLOBIN 10.2 g/dL (11.0-16.0); LYMPH # 1.4 K/uL (1.0-4.3); LYMPH % 36.8 % (20.0-40.0); MEAN CELL VOLUME 88.2 fL (81.0-99.0); MEAN CORPUSCULAR HEMOGLOBIN 29.7 pg (27.0-31.0); MEAN CORPUSCULAR HGB CONC 33.6 g/dL (33.0-37.0); MEAN PLATELET VOLUME 9.1 fL (7.2-11.7); MONO # 0.4 K/uL (0.0-0.8); MONO % 11.1 % (0.0-10.0); NEUT # 1.8 K/uL (1.8-7.0); NEUT % 47.5 % (50.0-75.0); NRBC % 0.1 % (0.0-2.0); RBC 3.45 Mil/uL (3.80-5.20); RED CELL DISTRIBUTION WIDTH 13.4 % (11.5-14.5); WHITE BLOOD COUNT 3.8 K/uL (4.8-10.8)
--- NOTE | 2018-06-07 06:43 | CP.PCM.PN ---
Subjective - Date & Time of Evaluation Date of Evaluation: 06/07/18 Time of Evaluation: 06:41 - Subjective Subjective: PT ALERT, LESS SOB.,LESS COUGH, NO SPUTUM., ROS; OTHERWISE NEG. Objective - Vital Signs/Intake and Output Vital Signs (last 24 hours): Temp Pulse Resp BP Pulse Ox 99.6 F 93 H 20 127/77 96 06/06/18 23:30 06/06/18 23:30 06/06/18 23:30 06/06/18 23:30 06/06/18 23:30 Intake and Output: 06/06/18 06/07/18 18:59 06:59 Intake Total 1300 800 Balance 1300 800 - Medications Medications: Current Medications Acetaminophen (Tylenol 325mg Tab) 650 mg PO Q6 PRN PRN Reason: Pain, moderate (4-7) Last Admin: 06/05/18 23:41 Dose: 650 mg Albuterol/Ipratropium (Duoneb 3 Mg/0.5 Mg (3 Ml) Ud) 3 ml INH RQ6 [facility] Last Admin: 06/07/18 01:31 Dose: Not Given Aspirin (Ecotrin) 81 mg PO DAILY [facility] Last Admin: 06/06/18 10:06 Dose: 81 mg Enoxaparin Sodium (Lovenox) 40 mg SC DAILY [facility] Last Admin: 06/06/18 10:06 Dose: 40 mg Guaifenesin (Robitussin) 100 mg PO Q6H PRN PRN Reason: Cough Last Admin: 06/06/18 21:47 Dose: 100 mg Azithromycin 500 mg/ Sodium (Chloride) 250 mls @ 166.667 mls/hr IVPB DAILY [facility] PRN Reason: Protocol Last Admin: 06/06/18 10:15 Dose: 166.667 mls/hr Ceftriaxone Sodium (Rocephin Iv 1 Gm Duplex) 50 mls @ 50 mls/30 min IVPB DAILY [facility] PRN Reason: Protocol Last Admin: 06/06/18 10:15 Dose: 50 mls/30 min Vancomycin/Sodium Chloride (Vancomycin 1 Gm/Ns 200 Ml) 1 gm in 200 mls @ 133.333 mls/hr IVPB Q12H [facility] PRN Reason: Protocol Stop: 06/09/18 14:16 Last Admin: 06/07/18 02:11 Dose: 133.333 mls/hr Nystatin (Nystatin Oral Susp) 5 ml PO QID [facility] Last Admin: 06/06/18 21:47 Dose: 5 ml Pantoprazole Sodium (Protonix Inj) 40 mg IVP DAILY [facility] Last Admin: 06/06/18 10:05 Dose: 40 mg Trimethoprim/Sulfamethoxazole (Bactrim Ds Tab) 1 tab PO DAILY [facility] PRN Reason: Protocol Last Admin: 06/06/18 16:52 Dose: 1 tab - Labs Labs: 06/06/18 07:33 06/06/18 07:33 - Constitutional Appears: Non-toxic, No Acute Distress - Head Exam Head Exam: ATRAUMATIC, NORMOCEPHALIC - Eye Exam Eye Exam: EOMI, Normal appearance - ENT Exam ENT Exam: Mucous Membranes Moist - Neck Exam Neck Exam: Normal Inspection - Respiratory Exam Respiratory Exam: Decreased Breath Sounds. absent: Accessory Muscle Use, Rales , Wheezes, Respiratory Distress - Cardiovascular Exam Cardiovascular Exam: RRR, +S1, +S2 - GI/Abdominal Exam GI & Abdominal Exam: Soft. absent: Tenderness - Rectal Exam Rectal Exam: Deferred - Extremities Exam Extremities Exam: absent: Calf Tenderness, Pedal Edema - Back Exam Back Exam: absent: CVA tenderness (L), CVA tenderness (R) - Neurological Exam Neurological Exam: Alert, Awake, CN II-XII Intact, Oriented x3 - Psychiatric Exam Psychiatric exam: Normal Mood - Skin Skin Exam: absent: Rash Assessment and Plan (1) HIV (human immunodeficiency virus infection) Status: Acute (2) Pneumonia Status: Acute (3) CAD (coronary artery disease) Status: Acute (4) HTN (hypertension) Status: Acute (5) Lung nodules Status: Acute (6) Anemia Status: Acute (7) COPD exacerbation Status: Acute - Assessment and Plan (Free Text) Assessment: RESP STATUS NO SIG CHANGE., CONT NEB BD., MONITOR O2 SAT. CXR REVIEWED. AFEBRILE , CONT IV AB. DISCUSSED WITH STAFF.
[2018-06-07 06:49] LABS: ALB/GLOB RATIO 0.8 (1.0-2.1); ALBUMIN 3.5 g/dL (3.5-5.0); ALT/SGPT 26 U/L (9-52); AST/SGOT 40 U/L (14-36); BLOOD UREA NITROGEN 10 mg/dL (7-17); GFR AFRICAN-AMERICAN > 60; GFR NON-AFRICAN AMERICAN > 60
--- NOTE | 2018-06-07 08:24 | PN ---
Copied To: Janice Martin MD Attending MD: Janice Martin MD DATE: 06/06/2018 SUBJECTIVE: The patient is afebrile today, but last night she did have a fever of 102. She is coughing a lot, but she says she does have phlegm, but it does not come out, it goes down. She says she always has a cough. She was seen by Dr. Nicholson also. I am just concerned about her 102 last night as she has been on three antibiotics. IV site appears unremarkable. She denies any urinary complaints. Denies any abdominal pain. No nausea. No vomiting. Has been coughing. IV sites are unremarkable. Labs done. PHYSICAL EXAMINATION: VITAL SIGNS: T-max was 98.7, pulse 76 now, blood pressure 126/81, respirations are 20. HEENT: Head is atraumatic, normocephalic. NECK: Supple. LUNGS: Clear. No crackles or rales present. HEART: S1, S2 are regular. ABDOMEN: Soft, nontender. No guarding, no rigidity present. EXTREMITIES: Have no edema. LABORATORY DATA: White count today was 3.8, hemoglobin 10.2, hematocrit 29.7, platelet count is 162. Her chemistry shows sodium 141, potassium 3.9, chlorides of 105, BUN is 8, anion gap is 15, CO2 is 25, creatinine is 0.6. Procalcitonin level yesterday came out 0.07. Serology shows that her CD4 count is 64, and she has a viral load of . ASSESSMENT AND PLAN: The patient is acutely ill at this time, so I do not want to start human immunodeficiency virus medication at this time here. Otherwise, we will have . I ordered an arterial blood gas. The arterial blood gas shows pH is 7.43, CO2 is 23, oxygen saturation is 97.9, was 21, FiO2 was 21. This was done on room air, so arterial blood gas is not that bad. I would think she has multifocal pneumonia at this time. She is human immunodeficiency virus positive. We have put her on Bactrim. She is getting Zithromax, vancomycin, and Rocephin every day. Once the x-ray shows some improvement, we will follow with Pulmonary and see. If she remains afebrile for 48 hours, then we will think of oral antibiotics. We will discuss the plan with Dr. Nicholson and Dr. Shea Cardenas. Janice Martin MD
[2018-06-07] MEDS: Enoxaparin 40 mg Syringe SC SCH (10:03)
[2018-06-07] MEDS: Nystatin 100,000 Units/ml Oral Susp 5 ml UD PO SCH ×4 (10:03→21:14)
[2018-06-07] MEDS: Tmp-Smz 800 mg-160 mg DS Tab PO SCH (10:03)
[2018-06-07] MEDS: cefTRIAXone IV 1 gm in Dextros 50 ML IVPB SCH (10:04)
[2018-06-07] MEDS: Azithromycin 500 MG in Sodium Chloride 0.9% 250 ML IVPB SCH (10:05)
[2018-06-07] MEDS: guaiFENesin 100 mg/5 ml Syrup UD PO PRN (13:34)
--- NOTE | 2018-06-07 15:44 | CP.PCM.PN ---
Subjective - Date & Time of Evaluation Date of Evaluation: 06/07/18 Time of Evaluation: 08:40 - Subjective Subjective: clinically same Objective - Vital Signs/Intake and Output Vital Signs (last 24 hours): Temp Pulse Resp BP Pulse Ox 98.1 F 77 18 137/79 99 06/07/18 07:42 06/07/18 07:42 06/07/18 07:42 06/07/18 07:42 06/07/18 07:42 Intake and Output: 06/07/18 06/07/18 06:59 18:59 Intake Total 800 1300 Balance 800 1300 - Medications Medications: Current Medications Acetaminophen (Tylenol 325mg Tab) 650 mg PO Q6 PRN PRN Reason: Pain, moderate (4-7) Last Admin: 06/05/18 23:41 Dose: 650 mg Albuterol/Ipratropium (Duoneb 3 Mg/0.5 Mg (3 Ml) Ud) 3 ml INH RQ6 [facility] Last Admin: 06/07/18 14:11 Dose: Not Given Aspirin (Ecotrin) 81 mg PO DAILY [facility] Last Admin: 06/07/18 10:03 Dose: 81 mg Enoxaparin Sodium (Lovenox) 40 mg SC DAILY [facility] Last Admin: 06/07/18 10:03 Dose: 40 mg Guaifenesin (Robitussin) 100 mg PO Q6H PRN PRN Reason: Cough Last Admin: 06/07/18 13:34 Dose: 100 mg Azithromycin 500 mg/ Sodium (Chloride) 250 mls @ 166.667 mls/hr IVPB DAILY [facility] PRN Reason: Protocol Last Admin: 06/07/18 10:05 Dose: 166.667 mls/hr Ceftriaxone Sodium (Rocephin Iv 1 Gm Duplex) 50 mls @ 50 mls/30 min IVPB DAILY [facility] PRN Reason: Protocol Last Admin: 06/07/18 10:04 Dose: 50 mls/30 min Vancomycin/Sodium Chloride (Vancomycin 1 Gm/Ns 200 Ml) 1 gm in 200 mls @ 133.333 mls/hr IVPB Q12H [facility] PRN Reason: Protocol Stop: 06/09/18 14:16 Last Admin: 06/07/18 13:34 Dose: 133.333 mls/hr Nystatin (Nystatin Oral Susp) 5 ml PO QID [facility] Last Admin: 06/07/18 13:34 Dose: 5 ml Pantoprazole Sodium (Protonix Inj) 40 mg IVP DAILY [facility] Last Admin: 06/07/18 10:03 Dose: 40 mg Trimethoprim/Sulfamethoxazole (Bactrim Ds Tab) 1 tab PO DAILY [facility] PRN Reason: Protocol Last Admin: 06/07/18 10:03 Dose: 1 tab - Labs Labs: 06/07/18 06:18 06/07/18 06:18 - Constitutional Appears: Well - Head Exam Head Exam: ATRAUMATIC, NORMAL INSPECTION, NORMOCEPHALIC - Eye Exam Eye Exam: EOMI, Normal appearance, PERRL Pupil Exam: NORMAL ACCOMODATION, PERRL - ENT Exam ENT Exam: Mucous Membranes Moist, Normal Exam - Neck Exam Neck Exam: Full ROM (bv), Normal Inspection. absent: Lymphadenopathy - Respiratory Exam Respiratory Exam: Decreased Breath Sounds - Cardiovascular Exam Cardiovascular Exam: REGULAR RHYTHM, +S1, +S2 - GI/Abdominal Exam GI & Abdominal Exam: Soft, Diminished Bowel Sounds - Rectal Exam Rectal Exam: Deferred
--- NOTE | 2018-06-07 17:15 | CP.PCM.PN ---
Subjective - Date & Time of Evaluation Date of Evaluation: 06/07/18 Time of Evaluation: 16:00 - Subjective Subjective: Dictated Objective - Vital Signs/Intake and Output Vital Signs (last 24 hours): Temp Pulse Resp BP Pulse Ox 98.1 F 62 20 119/66 100 06/07/18 15:00 06/07/18 15:00 06/07/18 15:00 06/07/18 15:00 06/07/18 15:00 Intake and Output: 06/07/18 06/07/18 06:59 18:59 Intake Total 800 1300 Balance 800 1300 - Medications Medications: Current Medications Acetaminophen (Tylenol 325mg Tab) 650 mg PO Q6 PRN PRN Reason: Pain, moderate (4-7) Last Admin: 06/05/18 23:41 Dose: 650 mg Albuterol/Ipratropium (Duoneb 3 Mg/0.5 Mg (3 Ml) Ud) 3 ml INH RQ6 [facility] Last Admin: 06/07/18 14:11 Dose: Not Given Aspirin (Ecotrin) 81 mg PO DAILY [facility] Last Admin: 06/07/18 10:03 Dose: 81 mg Enoxaparin Sodium (Lovenox) 40 mg SC DAILY [facility] Last Admin: 06/07/18 10:03 Dose: 40 mg Guaifenesin (Robitussin) 100 mg PO Q6H PRN PRN Reason: Cough Last Admin: 06/07/18 13:34 Dose: 100 mg Azithromycin 500 mg/ Sodium (Chloride) 250 mls @ 166.667 mls/hr IVPB DAILY [facility] PRN Reason: Protocol Last Admin: 06/07/18 10:05 Dose: 166.667 mls/hr Ceftriaxone Sodium (Rocephin Iv 1 Gm Duplex) 50 mls @ 50 mls/30 min IVPB DAILY [facility] PRN Reason: Protocol Last Admin: 06/07/18 10:04 Dose: 50 mls/30 min Vancomycin/Sodium Chloride (Vancomycin 1 Gm/Ns 200 Ml) 1 gm in 200 mls @ 133.333 mls/hr IVPB Q12H [facility] PRN Reason: Protocol Stop: 06/09/18 14:16 Last Admin: 06/07/18 13:34 Dose: 133.333 mls/hr Nystatin (Nystatin Oral Susp) 5 ml PO QID [facility] Last Admin: 06/07/18 13:34 Dose: 5 ml Pantoprazole Sodium (Protonix Inj) 40 mg IVP DAILY [facility] Last Admin: 06/07/18 10:03 Dose: 40 mg Trimethoprim/Sulfamethoxazole (Bactrim Ds Tab) 1 tab PO DAILY [facility] PRN Reason: Protocol Last Admin: 06/07/18 10:03 Dose: 1 tab - Labs Labs: 06/07/18 06:18 06/07/18 06:18
--- NOTE | 2018-06-07 23:03 | PN ---
Copied To: Janice Martin MD Attending MD: Janice Martin MD DATE: 06/07/2018 SUBJECTIVE: The patient is on IV antibiotics. She was seen by Pulmonary. She is still coughing a lot. PHYSICAL EXAMINATION VITAL SIGNS: T-max is 98.1, pulse 62, blood pressure 119/66, and respirations are 20. HEENT: Head is atraumatic, normocephalic. NECK: Supple. LUNGS: Clear. No crackles or rales heard. Decreased breath sounds bilaterally. HEART: S1, S2 is regular. ABDOMEN: Soft, nontender. No guarding, no rigidity present. EXTREMITIES: Have no edema. LABORATORY DATA: White count is 3.8, hemoglobin 10.2, hematocrit 30.5, and platelet count is 179. Blood cultures are negative. There is no sputum culture. ABG was noted. ASSESSMENT AND PLAN: Her fevers are now subsiding, but she is on multiple antibiotics including Zithromax, ceftriaxone, and vancomycin, and we started her on pneumocystis pneumonia prophylaxis. Plan would be to repeat her x-ray on Saturday and to see how things are because she does have two nodules which are acute and she is HIV positive and we will repeat x-ray to see if those nodules are any better with treatment. She is improving but still continues to cough and we will follow the pulmonary evaluation. Janice Martin MD
[2018-06-08] MEDS: Vancomycin 1 gm/NS 200 ml 1 GM/200 ML BAG IVPB SCH ×2 (01:26→13:58)
[2018-06-08] MEDS: Albuterol-Ipratrop 3 mg / 0.5 (3 ml) UD INH SCH ×4 (02:10→18:59)
[2018-06-08] MEDS: Tmp-Smz 800 mg-160 mg DS Tab PO SCH (10:07)
[2018-06-08] MEDS: Nystatin 100,000 Units/ml Oral Susp 5 ml UD PO SCH ×4 (10:07→21:53)
[2018-06-08] MEDS: Azithromycin 500 MG in Sodium Chloride 0.9% 250 ML IVPB SCH (10:08)
[2018-06-08] MEDS: Enoxaparin 40 mg Syringe SC SCH (10:08)
--- NOTE | 2018-06-08 12:58 | CP.PCM.PN ---
Subjective - Date & Time of Evaluation Date of Evaluation: 06/08/18 Time of Evaluation: 08:30 - Subjective Subjective: clinically same Objective - Vital Signs/Intake and Output Vital Signs (last 24 hours): Temp Pulse Resp BP Pulse Ox 97.8 F 73 20 124/72 97 06/08/18 08:00 06/08/18 08:00 06/08/18 08:00 06/08/18 08:00 06/08/18 08:00 Intake and Output: 06/08/18 06/08/18 06:59 18:59 Intake Total 300 Balance 300 - Medications Medications: Current Medications Acetaminophen (Tylenol 325mg Tab) 650 mg PO Q6 PRN PRN Reason: Pain, moderate (4-7) Last Admin: 06/05/18 23:41 Dose: 650 mg Albuterol/Ipratropium (Duoneb 3 Mg/0.5 Mg (3 Ml) Ud) 3 ml INH RQ6 [facility] Last Admin: 06/08/18 08:05 Dose: 3 ml Aspirin (Ecotrin) 81 mg PO DAILY [facility] Last Admin: 06/08/18 10:07 Dose: 81 mg Enoxaparin Sodium (Lovenox) 40 mg SC DAILY [facility] Last Admin: 06/08/18 10:08 Dose: 40 mg Guaifenesin (Robitussin) 100 mg PO Q6H PRN PRN Reason: Cough Last Admin: 06/07/18 13:34 Dose: 100 mg Azithromycin 500 mg/ Sodium (Chloride) 250 mls @ 166.667 mls/hr IVPB DAILY [facility] PRN Reason: Protocol Last Admin: 06/08/18 10:08 Dose: 166.667 mls/hr Vancomycin/Sodium Chloride (Vancomycin 1 Gm/Ns 200 Ml) 1 gm in 200 mls @ 133.333 mls/hr IVPB Q12H [facility] PRN Reason: Protocol Stop: 06/09/18 14:16 Last Admin: 06/08/18 01:26 Dose: 133.333 mls/hr Ceftriaxone Sodium 1 gm/ (Sodium Chloride) 100 mls @ 50 mls/30 min IVPB DAILY [facility] PRN Reason: Protocol Last Admin: 06/08/18 10:08 Dose: 50 mls/30 min Nystatin (Nystatin Oral Susp) 5 ml PO QID [facility] Last Admin: 06/08/18 10:07 Dose: 5 ml Pantoprazole Sodium (Protonix Inj) 40 mg IVP DAILY [facility] Last Admin: 06/08/18 10:07 Dose: 40 mg Temazepam (Restoril) 15 mg PO HS [facility] Last Admin: 06/07/18 21:47 Dose: 15 mg Trimethoprim/Sulfamethoxazole (Bactrim Ds Tab) 1 tab PO DAILY [facility] PRN Reason: Protocol Last Admin: 06/08/18 10:07 Dose: 1 tab - Labs Labs: 06/07/18 06:18 06/07/18 06:18 - Constitutional Appears: Well - Head Exam Head Exam: ATRAUMATIC, NORMAL INSPECTION, NORMOCEPHALIC - Eye Exam Eye Exam: EOMI, Normal appearance, PERRL Pupil Exam: NORMAL ACCOMODATION, PERRL - ENT Exam ENT Exam: Mucous Membranes Moist, Normal Exam - Neck Exam Neck Exam: Full ROM, Normal Inspection. absent: Lymphadenopathy - Respiratory Exam Respiratory Exam: Decreased Breath Sounds - Cardiovascular Exam Cardiovascular Exam: REGULAR RHYTHM, +S1, +S2 - GI/Abdominal Exam GI & Abdominal Exam: Soft, Diminished Bowel Sounds - Rectal Exam Rectal Exam: Deferred
[2018-06-08] MEDS: guaiFENesin 100 mg/5 ml Syrup UD PO PRN (13:58)
--- NOTE | 2018-06-08 22:27 | CARD ---
APPROVED REPORT Date of service: 06/05/2018 EXAM: Two-dimensional and M-mode echocardiogram with Doppler and color Doppler. INDICATION Infection:Rule out subacute bacterial endocarditis HIV RISK FACTORS Hypertension 2D DIMENSIONS IVSd1.0 (0.7-1.1cm)LVDd4.2 (3.9-5.9cm) PWd1.2 (0.7-1.1cm)LVDs2.8 (2.5-4.0cm) FS (%) 32.1 %LVEF (%)60.6 (>50%) M-Mode DIMENSIONS RVDd1.56 (2.1-3.2cm)Left Atrium (MM)3.97 (2.5-4.0cm) IVSd0.91 (0.7-1.1cm)Aortic Root2.80 (2.2-3.7cm) LVDd4.72 (4.0-5.6cm)Aortic Cusp Exc.2.21 (1.5-2.0cm) PWd1.17 (0.7-1.1cm)FS (%) 41 % LVDs2.77 (2.0-3.8cm)LVEF (%)65 (>50%) Mitral Valve MV E Hwekxdoi09.6cm/sMV A Bhqkbocr94.6cm/sE/A ratio1.2 TDI E/Lateral E'0.0E/Medial E'0.0 Tricuspid Valve TR Peak [id number]/sTR Peak [id number] <Conclusion> Left ventricle: thickness: normal; size: normal; overall ejection fraction: 65%: diastolic filling pressures: normal Mitral valve: annulus: normal: leaflets: normal: excursion: normal; no significant trans-mitral gradient: no significant incompetence: left atrium: normal Aortic valve: leaflets: normal: excursion: normal; no significant trans-aortic gradient: No significant incompetence: aortic root: normal Right sided Structures: Pulmonary valve: normal; no significant incompetence; Tricuspid valve: normal; no significant incompetence: Intra-cardiac hemodynamics: pulmonary systolic pressures: 45mmHg; central venous pressures: normal No pericardial effusion
--- NOTE | 2018-06-08 22:31 | CP.PCM.PN ---
Subjective - Date & Time of Evaluation Date of Evaluation: 06/08/18 Time of Evaluation: 22:28 - Subjective Subjective: PT ALERT, LESS COUGH., LESS SOB., AMBULATED . ROS; OTHERWISE NEG Objective - Vital Signs/Intake and Output Vital Signs (last 24 hours): Temp Pulse Resp BP Pulse Ox 98.2 F 72 20 126/69 98 06/08/18 15:42 06/08/18 15:42 06/08/18 15:42 06/08/18 15:42 06/08/18 15:42 Intake and Output: 06/08/18 06/09/18 18:59 06:59 Intake Total 1900 800 Balance 1900 800 - Medications Medications: Current Medications Acetaminophen (Tylenol 325mg Tab) 650 mg PO Q6 PRN PRN Reason: Pain, moderate (4-7) Last Admin: 06/05/18 23:41 Dose: 650 mg Albuterol/Ipratropium (Duoneb 3 Mg/0.5 Mg (3 Ml) Ud) 3 ml INH RQ6 [facility] Last Admin: 06/08/18 18:59 Dose: 3 ml Aspirin (Ecotrin) 81 mg PO DAILY [facility] Last Admin: 06/08/18 10:07 Dose: 81 mg Enoxaparin Sodium (Lovenox) 40 mg SC DAILY [facility] Last Admin: 06/08/18 10:08 Dose: 40 mg Guaifenesin (Robitussin) 100 mg PO Q6H PRN PRN Reason: Cough Last Admin: 06/08/18 13:58 Dose: 100 mg Azithromycin 500 mg/ Sodium (Chloride) 250 mls @ 166.667 mls/hr IVPB DAILY [facility] PRN Reason: Protocol Last Admin: 06/08/18 10:08 Dose: 166.667 mls/hr Vancomycin/Sodium Chloride (Vancomycin 1 Gm/Ns 200 Ml) 1 gm in 200 mls @ 133.333 mls/hr IVPB Q12H [facility] PRN Reason: Protocol Stop: 06/09/18 14:16 Last Admin: 06/08/18 13:58 Dose: 133.333 mls/hr Ceftriaxone Sodium 1 gm/ (Sodium Chloride) 100 mls @ 50 mls/30 min IVPB DAILY [facility] PRN Reason: Protocol Last Admin: 06/08/18 10:08 Dose: 50 mls/30 min Nystatin (Nystatin Oral Susp) 5 ml PO QID [facility] Last Admin: 06/08/18 21:53 Dose: 5 ml Pantoprazole Sodium (Protonix Inj) 40 mg IVP DAILY [facility] Last Admin: 06/08/18 10:07 Dose: 40 mg Temazepam (Restoril) 15 mg PO HS [facility] Last Admin: 06/08/18 21:53 Dose: 15 mg Trimethoprim/Sulfamethoxazole (Bactrim Ds Tab) 1 tab PO DAILY [facility] PRN Reason: Protocol Last Admin: 06/08/18 10:07 Dose: 1 tab - Labs Labs: 06/07/18 06:18 06/07/18 06:18 - Constitutional Appears: Non-toxic, No Acute Distress - Head Exam Head Exam: ATRAUMATIC, NORMOCEPHALIC - Eye Exam Eye Exam: EOMI, Normal appearance - ENT Exam ENT Exam: Mucous Membranes Moist - Neck Exam Neck Exam: Normal Inspection - Respiratory Exam Respiratory Exam: Decreased Breath Sounds. absent: Accessory Muscle Use, Rhonchi, Wheezes, Respiratory Distress - Cardiovascular Exam Cardiovascular Exam: RRR, +S1, +S2 - GI/Abdominal Exam GI & Abdominal Exam: Soft. absent: Tenderness - Rectal Exam Rectal Exam: Deferred - Extremities Exam Extremities Exam: absent: Calf Tenderness, Pedal Edema - Back Exam Back Exam: absent: CVA tenderness (L), CVA tenderness (R) - Neurological Exam Neurological Exam: Alert, Awake, CN II-XII Intact, Oriented x3 - Psychiatric Exam Psychiatric exam: Normal Mood - Skin Skin Exam: absent: Rash Assessment and Plan (1) HIV (human immunodeficiency virus infection) Status: Acute (2) Pneumonia Status: Acute (3) CAD (coronary artery disease) Status: Acute (4) HTN (hypertension) Status: Acute (5) Lung nodules Status: Acute (6) Anemia Status: Acute (7) COPD exacerbation Status: Acute - Assessment and Plan (Free Text) Assessment: RESP STATUS IMPROVING., CONT PULM TOILET., NEB BD., MONITOR O2 SAT. CXR REVIEWED., FOR REPEAT IN AM., CONT EMPIRIC IV AB. ID F/U NOTED. INCREASE OOB. PROG GUARDED. DISCUSSED WITH STAFF AT LENGTH.
[2018-06-09] MEDS: Albuterol-Ipratrop 3 mg / 0.5 (3 ml) UD INH SCH ×3 (01:22→13:52)
[2018-06-09] MEDS: Vancomycin 1 gm/NS 200 ml 1 GM/200 ML BAG IVPB SCH ×2 (01:59→14:38)
[2018-06-09 07:46] VITALS: BP 113/75; PULSE 79; RESP 20; TEMP 98.1; O2SAT 100
--- NOTE | 2018-06-09 08:54 | CP.PCM.PN ---
Subjective - Date & Time of Evaluation Date of Evaluation: 06/09/18 Time of Evaluation: 08:54 - Subjective Subjective: PGY2 Medicine Note for Dr. Neptali Cardenas Patient seen and examined this morning at bedside. No acute events overnight. Patient is resting comfortably in bed is very hopeful to go home today. She reports feeling back to normal with no complaints. Denies fevers, chills, nausea , vomiting, diarrhea, constipation, chest pain, SOB, abdominal pain, numbness or tingling. Objective - Vital Signs/Intake and Output Vital Signs (last 24 hours): Temp Pulse Resp BP Pulse Ox 98.1 F 79 20 113/75 100 06/09/18 07:45 06/09/18 07:45 06/09/18 07:45 06/09/18 07:45 06/09/18 07:45 Intake and Output: 06/09/18 06/09/18 06:59 18:59 Intake Total 800 Balance 800 - Medications Medications: Current Medications Acetaminophen (Tylenol 325mg Tab) 650 mg PO Q6 PRN PRN Reason: Pain, moderate (4-7) Last Admin: 06/05/18 23:41 Dose: 650 mg Albuterol/Ipratropium (Duoneb 3 Mg/0.5 Mg (3 Ml) Ud) 3 ml INH RQ6 [facility] Last Admin: 06/09/18 01:22 Dose: Not Given Aspirin (Ecotrin) 81 mg PO DAILY [facility] Last Admin: 06/08/18 10:07 Dose: 81 mg Enoxaparin Sodium (Lovenox) 40 mg SC DAILY [facility] Last Admin: 06/08/18 10:08 Dose: 40 mg Guaifenesin (Robitussin) 100 mg PO Q6H PRN PRN Reason: Cough Last Admin: 06/08/18 13:58 Dose: 100 mg Azithromycin 500 mg/ Sodium (Chloride) 250 mls @ 166.667 mls/hr IVPB DAILY [facility] PRN Reason: Protocol Last Admin: 06/08/18 10:08 Dose: 166.667 mls/hr Vancomycin/Sodium Chloride (Vancomycin 1 Gm/Ns 200 Ml) 1 gm in 200 mls @ 133.333 mls/hr IVPB Q12H [facility] PRN Reason: Protocol Stop: 06/09/18 14:16 Last Admin: 06/09/18 01:59 Dose: 133.333 mls/hr Ceftriaxone Sodium 1 gm/ (Sodium Chloride) 100 mls @ 50 mls/30 min IVPB DAILY [facility] PRN Reason: Protocol Last Admin: 06/08/18 10:08 Dose: 50 mls/30 min Nystatin (Nystatin Oral Susp) 5 ml PO QID [facility] Last Admin: 06/08/18 21:53 Dose: 5 ml Pantoprazole Sodium (Protonix Inj) 40 mg IVP DAILY [facility] Last Admin: 06/08/18 10:07 Dose: 40 mg Temazepam (Restoril) 15 mg PO HS [facility] Last Admin: 06/08/18 21:53 Dose: 15 mg Trimethoprim/Sulfamethoxazole (Bactrim Ds Tab) 1 tab PO DAILY [facility] PRN Reason: Protocol Last Admin: 06/08/18 10:07 Dose: 1 tab - Labs Labs: 06/07/18 06:18 06/07/18 06:18 - Constitutional Appears: Non-toxic, No Acute Distress - Head Exam Head Exam: ATRAUMATIC, NORMOCEPHALIC - Eye Exam Eye Exam: EOMI, Normal appearance - ENT Exam ENT Exam: Mucous Membranes Moist - Neck Exam Neck Exam: absent: Lymphadenopathy - Respiratory Exam Respiratory Exam: Clear to Ausculation Bilateral, NORMAL BREATHING PATTERN. absent: Accessory Muscle Use, Rales, Rhonchi, Wheezes, Respiratory Distress - Cardiovascular Exam Cardiovascular Exam: REGULAR RHYTHM, +S1, +S2 - GI/Abdominal Exam GI & Abdominal Exam: Soft, Normal Bowel Sounds. absent: Distended, Firm, Guarding, Rigid, Tenderness - Extremities Exam Extremities Exam: absent: Calf Tenderness, Pedal Edema - Back Exam Back Exam: absent: CVA tenderness (L), CVA tenderness (R) - Neurological Exam Neurological Exam: Alert, Awake, Oriented x3 - Psychiatric Exam Psychiatric exam: Normal Affect, Normal Mood - Skin Skin Exam: Dry, Warm Assessment and Plan - Assessment and Plan (Free Text) Plan: Pneumonia CXR 06/03/18: suspicious for small infiltrate or mass left apex for which follow up chest is advised Chest CT: two discrete nodules with irregular margins and surrounding ground glass attenuation in the left upper lobe and superior segment of the right lower lobe and patchy airspace disease in the right middle lobe and lower lobe. With the stated clinical history, the differential considerations include nonspecific/ atypical multifocal pneumonia including septic emboli Repeat CXR 06/09/18: Decreased prominence of opacity overlying anterior left 2nd rib. Followup to clearing advised to exclude neoplasm. ID, Dr. Martin consulted, help appreciated * called and discussed case with Dr. Martin. Abx per Dr. Martin's recommendations with instructions that patient follows up with her PMD and HIV clinic upon discharge. These instructions were discussed at length with patient. ECHO 06/04/18: EF ~65%, normal MV, AV, PV, TV, no pericardial effusion Meds: * Tylenol 650mg po q6h prn * Duonebs q6h [facility] * Robitussin 100mg po q6h prn * Azithromycin 500mg ivpb daily * Rocephin 1 gm ivpb daily * Vanco 1 gm q12h HIV CD4: 64 HIV: 156,000 Bactrim DS po daily for prophylaxis will also need to take Zithromax 1200mg weekly as an outpatient once discharged CAD ASA 81mg po daily Hx Dental Abscess Maxillofacial CT: no evidence of drainable fluid collection or osteomyelitis Nystatin oral susp qid COPD Duonebs q6h [facility] Prophylactic Measures SCDs DISPO: Patient has been afebrile since 06/06/18. Patient is to be discharged home with the following instructions. These instructions were discussed with patient at length. She states she wants to follow up with her doctors in [facility]. She was informed of mild improvement of nodule in upper lobe of left lung. She it is very important that she follows up with her PMD for continued monitoring and possible further work-up. Patient states she understands and agrees. Patient is to be discharged home per Dr. Neptali Cardenas. Patient is to follow up with her primary care physician in [facility] within one week. - Follow up lung nodule in left upper lobe. Patient is to follow up with her clinic within one week of discharge. Patient is to take her medications as directed. - Take Vantin 200mg by mouth twice a day for the next 10 days - Take Bactrim DS by mouth once a day until instructed by your HIV clinic. - Take Azithromycin 1,200mg by mouth once every Saturday morning until instructed by your HIV clinic. - Your CD4 count during your hospitalization was 64. If you experience any new or worsening symptoms, please go directly to the nearest emergency department.
[2018-06-09] MEDS: guaiFENesin 100 mg/5 ml Syrup UD PO PRN (11:36)
[2018-06-09] MEDS: Nystatin 100,000 Units/ml Oral Susp 5 ml UD PO SCH ×2 (11:36→14:38)
[2018-06-09] MEDS: Enoxaparin 40 mg Syringe SC SCH (11:36)
[2018-06-09] MEDS: Tmp-Smz 800 mg-160 mg DS Tab PO SCH (11:36)
--- NOTE | 2018-06-09 11:36 | CP.PCM.PN ---
Subjective - Date & Time of Evaluation Date of Evaluation: 06/09/18 Time of Evaluation: 11:34 - Subjective Subjective: PT ALERT, FEELS MUCH BETTER., OCC COUGH., NO SOB. ROS ; OTHERWISE NEG. Objective - Vital Signs/Intake and Output Vital Signs (last 24 hours): Temp Pulse Resp BP Pulse Ox 98.1 F 79 20 113/75 100 06/09/18 07:45 06/09/18 07:45 06/09/18 07:45 06/09/18 07:45 06/09/18 07:45 Intake and Output: 06/09/18 06/09/18 06:59 18:59 Intake Total 800 Balance 800 - Medications Medications: Current Medications Acetaminophen (Tylenol 325mg Tab) 650 mg PO Q6 PRN PRN Reason: Pain, moderate (4-7) Last Admin: 06/05/18 23:41 Dose: 650 mg Albuterol/Ipratropium (Duoneb 3 Mg/0.5 Mg (3 Ml) Ud) 3 ml INH RQ6 [facility] Last Admin: 06/09/18 01:22 Dose: Not Given Aspirin (Ecotrin) 81 mg PO DAILY [facility] Last Admin: 06/08/18 10:07 Dose: 81 mg Enoxaparin Sodium (Lovenox) 40 mg SC DAILY [facility] Last Admin: 06/08/18 10:08 Dose: 40 mg Guaifenesin (Robitussin) 100 mg PO Q6H PRN PRN Reason: Cough Last Admin: 06/08/18 13:58 Dose: 100 mg Azithromycin 500 mg/ Sodium (Chloride) 250 mls @ 166.667 mls/hr IVPB DAILY [facility] PRN Reason: Protocol Last Admin: 06/08/18 10:08 Dose: 166.667 mls/hr Vancomycin/Sodium Chloride (Vancomycin 1 Gm/Ns 200 Ml) 1 gm in 200 mls @ 133.333 mls/hr IVPB Q12H [facility] PRN Reason: Protocol Stop: 06/09/18 14:16 Last Admin: 06/09/18 01:59 Dose: 133.333 mls/hr Ceftriaxone Sodium 1 gm/ (Sodium Chloride) 100 mls @ 50 mls/30 min IVPB DAILY [facility] PRN Reason: Protocol Last Admin: 06/08/18 10:08 Dose: 50 mls/30 min Nystatin (Nystatin Oral Susp) 5 ml PO QID [facility] Last Admin: 06/08/18 21:53 Dose: 5 ml Pantoprazole Sodium (Protonix Inj) 40 mg IVP DAILY [facility] Last Admin: 06/08/18 10:07 Dose: 40 mg Temazepam (Restoril) 15 mg PO HS [facility] Last Admin: 06/08/18 21:53 Dose: 15 mg Trimethoprim/Sulfamethoxazole (Bactrim Ds Tab) 1 tab PO DAILY [facility] PRN Reason: Protocol Last Admin: 06/08/18 10:07 Dose: 1 tab - Labs Labs: 06/07/18 06:18 06/07/18 06:18 - Constitutional Appears: Non-toxic, No Acute Distress - Head Exam Head Exam: ATRAUMATIC, NORMOCEPHALIC - Eye Exam Eye Exam: EOMI, Normal appearance - ENT Exam ENT Exam: Mucous Membranes Moist - Neck Exam Neck Exam: Normal Inspection - Respiratory Exam Respiratory Exam: Decreased Breath Sounds. absent: Accessory Muscle Use, Rhonchi, Wheezes, Respiratory Distress - Cardiovascular Exam Cardiovascular Exam: RRR, +S1, +S2 - GI/Abdominal Exam GI & Abdominal Exam: Soft. absent: Tenderness - Rectal Exam Rectal Exam: Deferred - Extremities Exam Extremities Exam: absent: Calf Tenderness, Pedal Edema - Back Exam Back Exam: absent: CVA tenderness (L), CVA tenderness (R) - Neurological Exam Neurological Exam: Alert, Awake, CN II-XII Intact, Oriented x3 - Psychiatric Exam Psychiatric exam: Normal Mood - Skin Skin Exam: absent: Rash Assessment and Plan (1) HIV (human immunodeficiency virus infection) Status: Acute (2) Pneumonia Status: Acute (3) CAD (coronary artery disease) Status: Acute (4) HTN (hypertension) Status: Acute (5) Lung nodules Status: Acute (6) Anemia Status: Acute (7) COPD exacerbation Status: Acute - Assessment and Plan (Free Text) Assessment: RESP STATUS IMPROVING., CONT NEB BD., AND PULM TOILET., AFEBRILE ON AB. CXR REVIEWED, FOR REPEAT TODAY. INCREASE OOB. DISCUSSED WITH STAFF.
[2018-06-09] MEDS: Azithromycin 500 MG in Sodium Chloride 0.9% 250 ML IVPB SCH (13:48)
--- NOTE | 2018-06-09 15:33 | RAD ---
Date of service: 06/09/2018 HISTORY: re-eval nodules COMPARISON: 06/03/2018 TECHNIQUE: Chest PA and lateral FINDINGS: LUNGS: There is an irregular opacity overlying anterior end of the left 2nd rib, decreased in prominence compared to the prior examination. Followup to clearing is advised. No other abnormal opacity is appreciated elsewhere. PLEURA: No significant pleural effusion identified. No pneumothorax apparent. CARDIOVASCULAR: Normal. OSSEOUS STRUCTURES: No significant abnormalities. VISUALIZED UPPER ABDOMEN: Normal. OTHER FINDINGS: None. IMPRESSION: Decreased prominence of opacity overlying anterior left 2nd rib. Followup to clearing advised to exclude neoplasm.
== END 2018-06-09 15:25 | disposition home or self-care (01) | DRG 714 ==
LOC: C.ER 20:51 → C.9E 23:40 → C.5S 06-04 03:33 → OBSVTOIN 06-05 12:28
PROVIDERS: ADMIT Internal Medicine Nephrology; ATTEND Internal Medicine Nephrology
DX: B20 Human immunodeficiency virus [HIV] disease (principal); J18.9 Pneumonia, unspecified organism; J44.0 Chronic obstructive pulmonary disease with (acute) lower respiratory infection; I76 Septic arterial embolism; D64.9 Anemia, unspecified; F17.210 Nicotine dependence, cigarettes, uncomplicated; I10 Essential (primary) hypertension; I25.10 Atherosclerotic heart disease of native coronary artery without angina pectoris; I25.2 Old myocardial infarction; K59.00 Constipation, unspecified; Z79.82 Long term (current) use of aspirin; Z91.14 Patient's other noncompliance with medication regimen